=== PATIENT | male | born 1960 | race Caucasian/White ===

== ENCOUNTER 2018-02-08 14:22 | Inpatient (IN) ==
[2018-02-08] MEDS ORDERED: 0.9 % Sodium Chloride 1,000 ML IVC ONE (16:17)
[2018-02-08] MEDS ORDERED: Ketorolac 15 MG/ML VIAL IVP ONE (16:19)
[2018-02-08 16:38] LABS: Basophils % 0.7 %; Eosinophils # 0.1 K/mcL (0.0-0.6); Eosinophils % 1.1 %; Hematocrit 35.7 % (37.5-50.1); Hemoglobin 11.7 g/dL (12.9-16.9); Immature Granulocytes % 2.3 % (0-4); Lymphocytes # 0.5 K/mcL (0.6-4.6); Mean Corpuscular HGB Conc 32.8 g/dL (31.6-35.5); Mean Corpuscular Hemoglobin 30.1 pg (28.0-33.3); Mean Corpuscular Volume 91.8 fL (83.0-100.0); Mean Platelet Volume 8.6 fL (9.4-12.4); Monocytes # 0.7 K/mcL (0.0-1.3); Monocytes % 12.7 %; Neutrophils # 4.2 K/mcL (1.6-8.9); Platelet Count 322 K/mcL (140-400); Red Blood Count 3.89 M/mcL (4.19-5.50); Red Cell Distribution Width 12.5 % (11.5-14.5); Segmented Neutrophils % 74.2 %
[2018-02-08 16:57] LABS: Calcium 8.7 mg/dL (8.6-10.3); Potassium 4.5 mEq/L (3.5-5.1)
[2018-02-08] MEDS ORDERED: *HR* FentaNYL (PF) 100 MCG/2 ML VIAL IVP ONE (17:26)
[2018-02-08] MEDS ORDERED: Isovue-370 500 ML INFUS..BTL PO ONE (18:16)
[2018-02-08] MEDS ORDERED: Piperacillin/Tazobactam 3.375 GM in Water for inj. (sterile) 20 ML 20 ML IVP ONE (18:55)
[2018-02-08] MEDS ORDERED: MetroNIDAZOLE 500 MG/100 ML 500 MG/100 ML BAG IVPB ONE (19:13)
[2018-02-08 19:35] LABS: Thyroid Stimulating Hormone 2.025 mcIU/mL (0.340-5.600)
--- NOTE | 2018-02-08 19:36 | Emergency Department Note ---
Disposition Clinical Impression: Abdominal pain, Abdominal abscess, Renal stone Disposition: Admitted As Inpatient Condition: Fair Referrals: NONE,PCP [Primary Care Provider] - Forms: ED Satisfaction Letter, Work/School Release Abdominal Pain HPI - General Chief Complaint: ED Abdominal Pain Stated Complaint: ABd pain Time Seen by Provider: 02/08/18 15:55 Source: patient Mode of arrival: private vehicle Limitations: no limitations Nursing Notes Reviewed: Yes Vital Signs Reviewed: Yes - History of Present Illness HPI Narrative: The patient is a 57-year-old male presenting for one week history of progressively worsening abdominal pain. Patient states that he has a history of Crohn's disease with 2 colectomies performed when he was in his 20s. Patient also admits to a history of iron deficiency anemia with iron supplementation. Patient states that 1 week ago he noticed pain in the left lower quadrant which is progressively radiated diffusely throughout his abdomen. Patient states that the pain was initially sharp and stabbing in nature but is now is dull, 5 out of 10 on the pain scale and nonradiating. The patient states that he was seen at [facility] were imaging showed a "70% chance of bowel obstruction". Patient states that his last bowel movement was yesterday evening which was diarrhea-the patient states that with current disease diarrhea is his baseline. Patient denied blood in his diarrhea. The patient admits to chills but denies fever, headache, abnormal weight gain/loss, night sweats, vision change, difficulty eating or swallowing, chest pain, shortness of breath, back pain, hematuria/hematochezia, or numbness and tingling in his extremities. patient states that he had an anterior abdominal hernia repaired and that his surgeon noted that mesh may have displaced. The patient has an anterior mass noted on the right side of his mid abdominal region consistent with abdominal hernia. Pt Subjective Complaint: abdominal pain Onset (ago): week(s) Consistency: constant Location: diffuse, LLQ Pain Severity: moderate Pain Scale: 5 Quality: dull Radiation: none Migration to: no migration Improves with: nothing Worsens with: nothing Associated symptoms: Reports: diarrhea, chills - Related Data Home Medications Medication Instructions Recorded Confirmed Baclofen [Lioresal] 10 mg PO BID PRN 02/08/18 02/08/18 Buspirone HCl [Buspar] 10 mg PO BID 02/08/18 02/08/18 DULoxetine [Cymbalta] 30 mg PO BID 02/08/18 02/08/18 Diphenoxylate/Atropine [Lomotil 1 tab PO QID PRN 02/08/18 02/08/18 2.5 mg/0.025 mg] Gabapentin [Neurontin] 300 mg PO BID 02/08/18 02/08/18 Levothyroxine Sodium [Levoxyl] 75 mcg PO DAILY 02/08/18 02/08/18 Allergies Allergy/AdvReac Type Severity Reaction Status Date / Time No Known Allergies Allergy Verified 02/08/18 14:38 All systems ED: reviewed and negative except as stated. Review of Systems: As Per HPI Constitutional: Reports: chills, weakness. Denies: fever, weight change, night sweats Eyes: Denies: vision change ENT ED: Denies: dysphagia Cardiovascular: Denies: chest pain Respiratory: Denies: dyspnea Gastrointestinal: Reports: abdominal pain, diarrhea. Denies: nausea, vomiting Neurological: Reports: weakness. Denies: headache, numbness, paresthesias Endocrine: Reports: fatigue Abdominal Pain PMH - Past Medical History Medical history: Reports: other Psychiatric history: Reports: anxiety, depression - Social History Smoking status: Never smoker Alcohol use: Reports: none Drug use: Reports: none Physical Exam - General Limitations: no limitations General appearance: alert, in no apparent distress - Head Head exam: atraumatic, normocephalic, normal inspection - Eye Eye exam: Present: normal appearance, PERRL, EOMI. Absent: scleral icterus, conjunctival injection - Neck Neck exam: Present: trachea midline - Chest Chest inspection: Present: normal inspection, symmetric chest wall rise - Respiratory Respiratory exam: Present: normal lung sounds bilaterally. Absent: respiratory distress, accessory muscle use, prolonged expiratory phase - Cardiovascular Cardiovascular exam: Present: regular rate, normal rhythm, normal heart sounds, +S1, +S2. Absent: JVD, +S3, +S4 - Abdominal Exam Abdominal exam: Present: soft, tenderness, distention, normal bowel sounds. Absent: guarding, rebound, rigidity, organomegaly Abdominal tenderness: Present: LLQ (Diffuse tenderness noted to palpation, worse in the left lower quadrant), diffuse - Neurological Exam Neurological exam: Present: alert, oriented X3 - Psychiatric Psychiatric exam: Present: normal affect, normal mood - Skin Skin exam: Present: warm, dry, intact, normal color. Absent: cyanosis, diaphoresis Course Course Narrative: Patient history, review of systems, physical exam concerning for abdominal etiology-possibly bowel obstruction or exacerbation of Crohn's disease. CT of abdomen and pelvis without contrast, CBC, BMP, LDH, and will be assessed for anatomic, metabolic, and infectious etiology. 1 L fluid bolus and 10 mg ketorol ac administered for hydration and pain management. Vital Signs Temperature 98.3 F 02/08/18 14:36 Pulse Rate 85 02/08/18 14:36 Respiratory Rate 16 02/08/18 14:36 Blood Pressure 103/62 02/08/18 14:36 O2 Sat by Pulse Oximetry 98 02/08/18 14:36 Temperature 98.3 F 02/08/18 16:38 Pulse Rate 88 02/08/18 19:30 Respiratory Rate 20 02/08/18 19:30 Blood Pressure 118/69 02/08/18 20:25 O2 Sat by Pulse Oximetry 100 02/08/18 19:30 Oxygen Delivery Oxygen Delivery Room Air Abdominal Pain - MDM Narrative Medical decision making narrative: Based on radiological imaging, patient has a large abdominal abscess as well as obstructing renal lithiasis. Surgery has been consulted and is following, consult placed to urology. Patient to be admitted to hospital pending potential surgical/IR intervention. - Lab Data Result diagrams: 02/08/18 16:25 02/08/18 16:25 Lab Results 02/08/18 02/08/18 02/08/18 Range/Units 16:25 16:25 16:25 WBC 5.7 (4.3-11.1) K/mcL RBC 3.89 L (4.19-5.50) M/mcL Hgb 11.7 L (12.9-16.9) g/dL Hct 35.7 L (37.5-50.1) % MCV 91.8 (83.0-100.0) fL MCH 30.1 (28.0-33.3) pg MCHC 32.8 (31.6-35.5) g/dL RDW 12.5 (11.5-14.5) % Plt Count 322 (140-400) K/mcL MPV 8.6 L (9.4-12.4) fL Immature Gran % 2.3 (0-4) % Seg Neutrophils % 74.2 % Lymphocytes % 9.0 % Monocytes % 12.7 % Eosinophils % 1.1 % Basophils % 0.7 % Neutrophils # 4.2 (1.6-8.9) K/mcL Lymphocytes # 0.5 L (0.6-4.6) K/mcL Monocytes # 0.7 (0.0-1.3) K/mcL Eosinophils # 0.1 (0.0-0.6) K/mcL Basophils # 0.0 (0.0-0.2) K/mcL PT 16.8 H (9.4-12.1) Seconds INR 1.5 Sodium 134 L (136-145) mEq/L Potassium 4.5 (3.5-5.1) mEq/L Chloride 99 (98-107) mEq/L Carbon Dioxide 27 (23-29) mEq/L BUN 15 (6-20) mg/dL Creatinine 1.50 H (0.70-1.30) mg/dL Est GFR ( Amer) 58 L (> 60) Est GFR (Non-Af Amer) 48 L (> 60) BUN/Creatinine Ratio 10 (6-26) Glucose 108 H (70-105) mg/dL Calculated Osmolality 279 L (280-300) Lactic Acid (0.5-2.2) mmol/L Calcium 8.7 (8.6-10.3) mg/dL Lactate Dehydrogenase 111 L (140-271) Units/L TSH 2.025 (0.340-5.600) mcIU/mL 02/08/18 Range/Units 19:57 WBC (4.3-11.1) K/mcL RBC (4.19-5.50) M/mcL Hgb (12.9-16.9) g/dL Hct (37.5-50.1) % MCV (83.0-100.0) fL MCH (28.0-33.3) pg MCHC (31.6-35.5) g/dL RDW (11.5-14.5) % Plt Count (140-400) K/mcL MPV (9.4-12.4) fL Immature Gran % (0-4) % Seg Neutrophils % % Lymphocytes % % Monocytes % % Eosinophils % % Basophils % % Neutrophils # (1.6-8.9) K/mcL Lymphocytes # (0.6-4.6) K/mcL Monocytes # (0.0-1.3) K/mcL Eosinophils # (0.0-0.6) K/mcL Basophils # (0.0-0.2) K/mcL PT (9.4-12.1) Seconds INR Sodium (136-145) mEq/L Potassium (3.5-5.1) mEq/L Chloride (98-107) mEq/L Carbon Dioxide (23-29) mEq/L BUN (6-20) mg/dL Creatinine (0.70-1.30) mg/dL Est GFR ( Amer) (> 60) Est GFR (Non-Af Amer) (> 60) BUN/Creatinine Ratio (6-26) Glucose (70-105) mg/dL Calculated Osmolality (280-300) Lactic Acid 0.7 (0.5-2.2) mmol/L Calcium (8.6-10.3) mg/dL Lactate Dehydrogenase (140-271) Units/L TSH (0.340-5.600) mcIU/mL Attestation Statement - Attestation Attestation: I, Ismael Zaragoza DO, examined this patient [id number] and my medical decision-making was reviewed with Dr. Kody Elmore, Resident Physician. I agree with the documented findings, disposition and treatment plan as described except to the extent set forth below. Please see my progress notes for details.
[2018-02-08 19:37] LABS: INR 1.5; Prothrombin Time 16.8 Seconds (9.4-12.1)
--- NOTE | 2018-02-08 19:41 | Emergency Department Note ---
Disposition Clinical Impression: Abdominal pain, Abdominal abscess, Renal stone Disposition: Admitted As Inpatient Condition: Fair Referrals: NONE,PCP [Primary Care Provider] - Forms: ED Satisfaction Letter, Work/School Release Time of Disposition: 19:41 General Adult HPI - General Chief complaint: ED Abdominal Pain Stated complaint: ABd pain Time Seen by Provider: 02/08/18 15:55 Source: patient Mode of arrival: private vehicle Limitations: no limitations - History of Present Illness Pain Scale: 5 - Related Data Home Medications Medication Instructions Recorded Confirmed Baclofen [Lioresal] 10 mg PO BID PRN 02/08/18 02/08/18 Buspirone HCl [Buspar] 10 mg PO BID 02/08/18 02/08/18 DULoxetine [Cymbalta] 30 mg PO BID 02/08/18 02/08/18 Diphenoxylate/Atropine [Lomotil 1 tab PO QID PRN 02/08/18 02/08/18 2.5 mg/0.025 mg] Gabapentin [Neurontin] 300 mg PO BID 02/08/18 02/08/18 Levothyroxine Sodium [Levoxyl] 75 mcg PO DAILY 02/08/18 02/08/18 Allergies Allergy/AdvReac Type Severity Reaction Status Date / Time No Known Allergies Allergy Verified 02/08/18 14:38 Constitutional: Reports: chills, weakness. Denies: fever, weight change, night sweats Eyes: Denies: vision change ENT ED: Denies: dysphagia Cardiovascular: Denies: chest pain Respiratory: Denies: dyspnea Gastrointestinal: Reports: abdominal pain, diarrhea. Denies: nausea, vomiting Neurological: Reports: weakness. Denies: headache, numbness, paresthesias Endocrine: Reports: fatigue Past Medical History - Past Medical History Medical history: Reports: other Surgical history: Reports: herniorrhaphy Psychiatric history: Reports: anxiety, depression - Social History Smoking Status: Never smoker Smokeless Tobacco Status: No Alcohol use: Reports: none Drug use: Reports: none Physical Exam - General Limitations: no limitations General appearance: alert, in no apparent distress Course Vital Signs Temperature 98.3 F 02/08/18 14:36 Pulse Rate 85 02/08/18 14:36 Respiratory Rate 16 02/08/18 14:36 Blood Pressure 103/62 02/08/18 14:36 O2 Sat by Pulse Oximetry 98 02/08/18 14:36 Temperature 98.3 F 02/08/18 16:38 Pulse Rate 88 02/08/18 19:30 Respiratory Rate 20 02/08/18 19:30 Blood Pressure 126/66 02/08/18 19:30 O2 Sat by Pulse Oximetry 100 02/08/18 19:30 Oxygen Delivery Oxygen Delivery Room Air Medical Decision Making - Lab Data Result diagrams: 02/08/18 16:25 02/08/18 16:25 Lab Results 02/08/18 02/08/18 Range/Units 16:25 16:25 WBC 5.7 (4.3-11.1) K/mcL RBC 3.89 L (4.19-5.50) M/mcL Hgb 11.7 L (12.9-16.9) g/dL Hct 35.7 L (37.5-50.1) % MCV 91.8 (83.0-100.0) fL MCH 30.1 (28.0-33.3) pg MCHC 32.8 (31.6-35.5) g/dL RDW 12.5 (11.5-14.5) % Plt Count 322 (140-400) K/mcL MPV 8.6 L (9.4-12.4) fL Immature Gran % 2.3 (0-4) % Seg Neutrophils % 74.2 % Lymphocytes % 9.0 % Monocytes % 12.7 % Eosinophils % 1.1 % Basophils % 0.7 % Neutrophils # 4.2 (1.6-8.9) K/mcL Lymphocytes # 0.5 L (0.6-4.6) K/mcL Monocytes # 0.7 (0.0-1.3) K/mcL Eosinophils # 0.1 (0.0-0.6) K/mcL Basophils # 0.0 (0.0-0.2) K/mcL Sodium 134 L (136-145) mEq/L Potassium 4.5 (3.5-5.1) mEq/L Chloride 99 (98-107) mEq/L Carbon Dioxide 27 (23-29) mEq/L BUN 15 (6-20) mg/dL Creatinine 1.50 H (0.70-1.30) mg/dL Est GFR ( Amer) 58 L (> 60) Est GFR (Non-Af Amer) 48 L (> 60) BUN/Creatinine Ratio 10 (6-26) Glucose 108 H (70-105) mg/dL Calculated Osmolality 279 L (280-300) Calcium 8.7 (8.6-10.3) mg/dL Lactate Dehydrogenase 111 L (140-271) Units/L TSH 2.025 (0.340-5.600) mcIU/mL Attestation Statement - Attestation Attestation: I, Ismael Zaragoza DO, examined this patient [id number] and my medical decision-making was reviewed with Dr. Kody Elmore, Resident Physician. I agree with the documented findings, disposition and treatment plan as described except to the extent set forth below. Please see my progress notes for details. 57-year-old male presents to the emergency room for evaluation of abdominal pain. Patient was seen in outside facility with a told them I "there is a 70% chance she may have a bowel obstruction". Patient did not feel comfortable with this and decided to come to our facility for continuation of her evaluation and care. Currently, vision is denying chest pain, shortness of breath, headache, vision changes. He has had intermittent nausea with no specific vomiting. Denies any falls trauma or injury otherwise. Vital signs are stable on presentation. Patient is been eating and drinking at home without any significant distress. Physical exam: Patient is resting comfortably in the bed. Head is atraumatic. Positive on reactive. Oral mucosa is patent and moist. Trachea is midline. Lungs are clear and heart is regular. Abdomen is soft but he does have tenderness diffusely across the abdominal wall. There is some involuntary guarding noted. Bowel sounds are diminished but are appreciable at this point. He denies any blood in his stool. No history of anal fissure trauma or injury. Detailed workup here today will be completed CBC, chemistry, lipase, liver function. Urinalysis will be collected as well. CT imaging of the abdomen and EKG will be ordered. Disposition will be determined once the full workup treatment course and evaluation have been established. Fluids nausea medication pain medication will be given. See detailed documentation of the physical exam, medical intervention, medical decision-making and disposition in the resident physician's note. No critical care applied to the patient's treatment course at this time 1900 Patient found to have intra-abdominal abscess as well as a 5 mm midureteral obstructing stone with severe hydronephrosis. Stone most likely obstructed up against the abscess site and has been chronic now for a period of time. Both of these etiology are on the left side of the abdomen. Surgical intervention was discussed and reviewed with the patient. He has had surgery at this facility in the past. Dr. cyr was in the emergency room of a context of her and she will evaluate the patient the bedside and did recommend antibiotics and admission to the hospitals. Urology will be consult that is well further medical intervention. Disposition will be admission wants to hospitals calls us back. We have been waiting a period of time at this point for hospitalist call back for medical admissions. Disposition to be completed. 1930 Patient discussed with the hospitalist for admission. Urology consultation was placed. Nonemergent intervention is required. Surgical evaluation will be completed on the inpatient setting. No other recommendations or concerns from the hospitalist at this time. Patient is otherwise clinically stable with appropriate medical intervention antibiotics provided. Patient will be observed here in the emergency room until the admission process is completed
--- NOTE | 2018-02-08 20:03 | General Surgery Consult Note ---
Date of Encounter: 02/08/18 Time of Encounter: 19:47 Assessment and Plan (1) Crohn's disease with abscess Current Visit: Yes Status: Chronic CT scan personally reviewed cipro/flagyl antibiotics recommend DENA cooper for drain placement for intra-abdominal abscess npo ivfhydration prn pain control serial abdominal exams no surgical intervention warranted at this time Qualifiers: Gastrointestinal tract location: small intestine Qualified Code(s): K50.014 - Crohn's disease of small intestine with abscess (2) Hydronephrosis Current Visit: Yes Status: Acute recommend consult urology Qualifiers: Hydronephrosis type: with renal calculous obstruction Qualified Code(s): N13.2 - Hydronephrosis with renal and ureteral calculous obstruction (3) Abdominal pain Current Visit: Yes Status: Acute see above (Crohns abscess) Qualifiers: Abdominal location: generalized Qualified Code(s): R10.84 - Generalized abdominal pain (4) Renal stone Current Visit: Yes Status: Acute (5) Hypothyroid Current Visit: Yes Status: Chronic treat with iv medication/synthroid Qualifiers: Hypothyroidism type: unspecified Qualified Code(s): E03.9 - Hypothyroidism, unspecified History of Present Illness Consult date: 02/08/18 Reason for consult: other (Crohns abscess) Requesting physician: Ismael Zaragoza History of present illness: Patient is a 57 year old male with prolonged medical history of Crohn's Disease. He is followed by Dr Salamanca for his crohns and takes Entyvio and lomotil. Patient was previously treated with remicade but he had a reaction to it. Hes been having intermittent abdominal pain since last weekend (about 6 days ago). For the last day and a half he has been having bilateral lower abdominal pain that is dull and always present with intermittent sharp pains that last a few seconds. Denies nasuea and vomiting. No abdominal distention. Denies fevers, chills or night sweat. No melena or hematochezia. He is still passing flatus and last bm this am - his normal soft. CT scan here in ED shows "Multi segmental a reas of small bowel wall thickening compatible with "skip lesions" given patient's history of Crohn's disease. Intra-abdominal abscess containing foci of gas adjacent to a small bowel stricture. No contrast extravasation to suggest leak." wbc wnl and no bands present. Cr 1.5 Past Med Surg Social Fam HX - Past Medical History Source: patient Medical history: other Additional medical history: Crohns. RLS. hx renal stones Psychiatric history: anxiety, depression - Past Surgical History Surgical History: colectomy (??), herniorrhaphy (x3 (mesh placed last surgery only)), other (hx renal stone extraction/stents) Additional surgical history: bowel surgery - Social History Smoking Status: Never smoker Smokeless Tobacco Status: No Alcohol use: none Drug use: none - Family History Grandmother History Unknown: Yes Medications and Allergies Baclofen [Lioresal] 10 mg PO BID PRN 02/08/18 [History] Buspirone HCl [Buspar] 10 mg PO BID 02/08/18 [History] DULoxetine [Cymbalta] 30 mg PO BID 02/08/18 [History] Diphenoxylate/Atropine [Lomotil 2.5 mg/0.025 mg] 1 tab PO QID PRN 02/08/18 [History] Gabapentin [Neurontin] 300 mg PO BID 02/08/18 [History] Levothyroxine Sodium [Levoxyl] 75 mcg PO DAILY 02/08/18 [History] Allergy/AdvReac Type Severity Reaction Status Date / Time No Known Allergies Allergy Verified 02/08/18 14:38 Review of Systems All systems PM: reviewed and no additional remarkable complaints except as stated All systems PM: The remainder of the systems were reviewed and are negative General Surgery Exam Initial Vital Signs Temp Pulse Resp BP Pulse Ox 98.3 F 85 16 103/62 98 02/08/18 14:36 02/08/18 14:36 02/08/18 14:36 02/08/18 14:36 02/08/18 14:36 - General physical appearance well developed, no distress, no pain, chronically ill - Eyes PERRL, normal ocular movement - ENT normal mucosa, normocephalic - Neck trachea midline - Respiratory normal expansion, clear to auscultation - Cardiovascular Cardiovascular exam: Present: RRR, no murmurs/rubs/gallops - Abdomen Abdomen general surgery: Present: bowel sounds present, soft, tender (minmal at midabdomen). Absent: distended, guarding, rebound - Integumentary Integumentary general surgery: Present: warm and dry, no abnormal pigmentation - Neurologic Present: CN 2-12 grossly intact - Musculoskeletal Present: normal posture - Psychiatric Psychiatric general surgery: Present: A&Ox3, speech is normal Exam Initial Vital Signs Temp Pulse Resp BP Pulse Ox 98.3 F 85 16 103/62 98 02/08/18 14:36 02/08/18 14:36 02/08/18 14:36 02/08/18 14:36 02/08/18 14:36 Results - Labs 02/08/18 16:25 02/08/18 16:25 Abnormal lab results RBC 3.89 M/mcL (4.19-5.50) L 02/08/18 16:25 Hgb 11.7 g/dL (12.9-16.9) L 02/08/18 16:25 Hct 35.7 % (37.5-50.1) L 02/08/18 16:25 MPV 8.6 fL (9.4-12.4) L 02/08/18 16:25 Lymphocytes # 0.5 K/mcL (0.6-4.6) L 02/08/18 16:25 PT 16.8 Seconds (9.4-12.1) H 02/08/18 16:25 Sodium 134 mEq/L (136-145) L 02/08/18 16:25 Creatinine 1.50 mg/dL (0.70-1.30) H 02/08/18 16:25 Est GFR ( Amer) 58 (> 60) L 02/08/18 16:25 Est GFR (Non-Af Amer) 48 (> 60) L 02/08/18 16:25 Glucose 108 mg/dL (70-105) H 02/08/18 16:25 Calculated Osmolality 279 (280-300) L 02/08/18 16:25 Lactate Dehydrogenase 111 Units/L (140-271) L 02/08/18 16:25 Diabetes panel 02/08/18 Range/Units 16:25 Sodium 134 L (136-145) mEq/L Potassium 4.5 (3.5-5.1) mEq/L Chloride 99 (98-107) mEq/L Carbon Dioxide 27 (23-29) mEq/L BUN 15 (6-20) mg/dL Creatinine 1.50 H (0.70-1.30) mg/dL Glucose 108 H (70-105) mg/dL Calcium 8.7 (8.6-10.3) mg/dL Thyroid panel 02/08/18 Range/Units 16:25 TSH 2.025 (0.340-5.600) mcIU/mL Calcium panel 02/08/18 Range/Units 16:25 Calcium 8.7 (8.6-10.3) mg/dL Pituitary panel 02/08/18 Range/Units 16:25 Sodium 134 L (136-145) mEq/L Potassium 4.5 (3.5-5.1) mEq/L Chloride 99 (98-107) mEq/L Carbon Dioxide 27 (23-29) mEq/L BUN 15 (6-20) mg/dL Creatinine 1.50 H (0.70-1.30) mg/dL Glucose 108 H (70-105) mg/dL Calcium 8.7 (8.6-10.3) mg/dL TSH 2.025 (0.340-5.600) mcIU/mL Adrenal panel 02/08/18 Range/Units 16:25 Sodium 134 L (136-145) mEq/L Potassium 4.5 (3.5-5.1) mEq/L Chloride 99 (98-107) mEq/L Carbon Dioxide 27 (23-29) mEq/L BUN 15 (6-20) mg/dL Creatinine 1.50 H (0.70-1.30) mg/dL Glucose 108 H (70-105) mg/dL Calcium 8.7 (8.6-10.3) mg/dL All other labs normal. - Imaging CT scan - abdomen: report reviewed, image reviewed CT scan - pelvis: report reviewed, image reviewed Consult Discharge Plan - Plan Referrals: NONE,PCP [Primary Care Provider] -
[2018-02-08] MEDS: 0.9 % Sodium Chloride 1,000 ML IVC SCH (20:15)
[2018-02-08 20:49] LABS: Bilirubin,Urine Negative (Negative); Blood,Urine Negative (Negative); Clarity,Urine Clear (Clear); Color,Urine Yellow (Yellow); Glucose,Urine (UA) Normal (Normal); Ketones,Urine Negative (Negative); Leukocyte Esterase,Urine Negative (Negative); Nitrite,Urine Negative (Negative); Protein,Urine Negative (Neg-Trace); Specific Gravity,Urine 1.026 (1.010-1.025); Urobilinogen,Urine Normal (Normal)
[2018-02-08] MEDS ORDERED: Diphenoxylate/Atropine 1 TAB TABLET PO PRN (21:47)
--- NOTE | 2018-02-08 22:37 | Internal Med History&Physical ---
Date of Encounter: 02/08/18 Time of Encounter: 22:36 Internal Medicine - H&P: HPI Chief complaint: abdominal pain Admitted From: Home Plans for Post Hospital Care: Home History of present illness: Mr. Elena is a 57 year old man with Crohn's disease on immunomodulator therapy and multiple gastrointestinal surgeries who presents with the complaint of abdominal pain that has been progressively increasing over the past 1 week. He localizes it to his left flank but has now extended to the umbilical and spurapbuc region. He reports having occasional diarrhea that is consistent with his IBD and not out of the ordinary for him. He occasioanlly has chills but denies fever. He denies any trauma to the abdomen and no recent surgical manipulations. No nausea or vomiting and he is still able to tolerate PO. He passes gas and has active bowel movements. CT scan done here on arrival was depictive of "Multi segmental areas of small bowel wall thickening compatible with "skip lesions" given patient's history of Crohn's disease. Intra-abdominal abscess containing foci of gas adjacent to a small bowel stricture. No contrast extravasation to suggest leak." Surgery was consulted and deemed not to require acute intervention at this time given his clinical stability, lack of peritoneal signs and no systemic signs of illness (no fever or leuocytosis). The recommendation is to continue Iv abx and consult IR for drainage. At this time he has no complaints, stating that he mainly feels pain when the abdomen is pressed on. Past Med Surg Social Fam HX - Past Medical History Medical history: other Additional medical history: Crohns. RLS. hx renal stones Psychiatric history: anxiety, depression - Past Surgical History Surgical History: colectomy (??), herniorrhaphy (x3 (mesh placed last surgery only)), other (hx renal stone extraction/stents) Additional surgical history: bowel surgery - Social History Smoking Status: Never smoker Smokeless Tobacco Status: No Alcohol use: none Drug use: none - Family History Grandmother History Unknown: Yes Internal Medicine - H&P: Meds Baclofen [Lioresal] 10 mg PO BID PRN 02/08/18 [History] Buspirone HCl [Buspar] 10 mg PO BID 02/08/18 [History] DULoxetine [Cymbalta] 30 mg PO BID 02/08/18 [History] Diphenoxylate/Atropine [Lomotil 2.5 mg/0.025 mg] 1 tab PO QID PRN 02/08/18 [History] Gabapentin [Neurontin] 300 mg PO BID 02/08/18 [History] Levothyroxine Sodium [Levoxyl] 75 mcg PO DAILY 02/08/18 [History] Allergy/AdvReac Type Severity Reaction Status Date / Time No Known Allergies Allergy Verified 02/08/18 14:38 All Systems PM: A 10-system review of systems was performed and is negative for pertinent findings except as documented above in the HPI. - Constitutional Vitals: Temp Pulse Resp BP Pulse Ox 98.3 F 62 12 123/73 96 02/08/18 16:38 02/08/18 22:23 02/08/18 22:23 02/08/18 22:23 02/08/18 22:23 Exam: Vitals: Reviewed General: Well-appearing, NAD Skin: Warm and supple. HEENT: Moist mucous membranes. No conjunctivae pallor. Neck: No lymphadenopathy. No JVD. No carotid bruits. No palpable thyroid. Chest: Normal thoracic expansion. Normal breath sounds. Clear to auscultation. Heart: Normal S1 & S2; rhythmic. No rubs or murmurs. Abdomen: Non-distended, soft and mildly tender to palpation in the left flank and mid-abdomen. No peritoneal reaction. Liver is normal in size. Spleen is not palpable. Extremities: No clubbing, cyanosis or edema. No calf tenderness. Normal distal pulses. Neurological: Awake, alert and oriented to person, place and time. No focal deficits. Psych: Affect appropriate. Internal Med - H&P Results - Labs CBC & Chem 7: 02/08/18 16:25 02/08/18 16:25 Labs: Short CBC 02/08/18 Range/Units 16:25 WBC 5.7 (4.3-11.1) K/mcL Hgb 11.7 L (12.9-16.9) g/dL Hct 35.7 L (37.5-50.1) % Plt Count 322 (140-400) K/mcL Neutrophils # 4.2 (1.6-8.9) K/mcL BMP 02/08/18 16:25 Sodium 134 L Potassium 4.5 Chloride 99 Carbon Dioxide 27 BUN 15 Creatinine 1.50 H Glucose 108 H Calcium 8.7 Urine 02/08/18 Range/Units 20:29 Urine Color Yellow (Yellow) Urine Clarity Clear (Clear) Urine pH 6.0 (5.0-8.0) pH Units Ur Specific [place] 1.026 H (1.010-1.025) Urine Protein Negative (Neg-Trace) mg/dL Urine Glucose (UA) Normal (Normal) mg/dL - Impressions ITS Impressions Abdomen/Pelvis CT 02/08/18 18:10 IMPRESSION: Multi segmental areas of small bowel wall thickening compatible with "skip lesions" given patient's history of Crohn's disease. Intra-abdominal abscess containing foci of gas adjacent to a small bowel stricture (see annotated images). No contrast extravasation to suggest leak. Adjacent 5 mm obstructing stones in the mid to distal left ureter results in severe left hydroureteronephrosis. Additional nonobstructing left intrarenal stones measuring up to 10 mm. Nonobstructive right nephrolithiasis. Cholelithiasis. D/ / Inderjit Zhang / Inderjit Zhang Interpreting Provider: Inderjit Zhang - Assessment and plan (1) Abdominal abscess Current Visit: Yes Status: Acute Assessment and plan: Likely a secondary complication to his Crohn's disease. Need to target gram negative enteric and anaerobic organisms. Lacks systemic signs of illness. Blood cultures ordered. Will continue ciprofloxacin/metronidazole for now. IR consult requested for drainage and samples should be sent for cell count, cytology and cultures. (2) GISSELLE (acute kidney injury) Current Visit: Yes Status: Acute Assessment and plan: Will place on IVF and recheck bmp. (3) Crohn's disease with abscess Current Visit: Yes Status: Chronic Assessment and plan: Receives immunomodulator every 6 weeks. Will continue to follow with GI. Qualifiers: Gastrointestinal tract location: small intestine Qualified Code(s): K50.014 - Crohn's disease of small intestine with abscess (4) Hypothyroid Current Visit: Yes Status: Chronic Assessment and plan: Will continue levothyroxine daily. Qualifiers: Hypothyroidism type: unspecified Qualified Code(s): E03.9 - Hypothyroidism, unspecified (5) Renal stone Current Visit: Yes Status: Acute Assessment and plan: Will place on IVF and tamsulosin. Will benefit from urology evaluation if symptomatic. (6) DVT prophylaxis Current Visit: Yes Status: Acute Assessment and plan: SubQ heparin indicated. - Time Spent With Patient Total time spent is greater than 50% in coordination of care (as documented) at patient's floor/unit and/or counseling patient: Greater than 35 minutes
[2018-02-09] MEDS ORDERED: Naloxone 0.4 MG/ML INJ IVP PRN (01:33)
[2018-02-09] MEDS ORDERED: *HR* HYDROcodone/Acet 5/325 mg TABLET PO PRN (01:33)
[2018-02-09] MEDS ORDERED: Ketorolac 15 MG/ML VIAL IVP PRN (01:33)
[2018-02-09] MEDS ORDERED: Acetaminophen 325 MG TABLET PO PRN (01:33)
[2018-02-09] MEDS: *HR* OxyCODONE Immed Rel 5 MG TABLET PO PRN ×3 (01:54→18:31)
[2018-02-09] MEDS: 0.9 % Sodium Chloride 1,000 ML IVC SCH (03:30)
[2018-02-09 06:09] LABS: Basophils # 0.1 K/mcL (0.0-0.2); Basophils % 1.5 %; Eosinophils # 0.1 K/mcL (0.0-0.6); Hematocrit 36.7 % (37.5-50.1); Hemoglobin 11.9 g/dL (12.9-16.9); Immature Granulocytes % 4.2 % (0-4); Lymphocytes # 0.7 K/mcL (0.6-4.6); Lymphocytes % 16.4 %; Mean Corpuscular HGB Conc 32.4 g/dL (31.6-35.5); Mean Corpuscular Hemoglobin 30.1 pg (28.0-33.3); Mean Corpuscular Volume 92.7 fL (83.0-100.0); Mean Platelet Volume 8.7 fL (9.4-12.4); Monocytes # 0.6 K/mcL (0.0-1.3); Monocytes % 15.6 %; Neutrophils # 2.4 K/mcL (1.6-8.9); Platelet Count 292 K/mcL (140-400); Red Blood Count 3.96 M/mcL (4.19-5.50); Red Cell Distribution Width 12.2 % (11.5-14.5); Segmented Neutrophils % 60.3 %
[2018-02-09 06:16] LABS: INR 1.5; Prothrombin Time 17.1 Seconds (9.4-12.1)
[2018-02-09 06:19] LABS: Activated Partial Thrombo Time 31.4 Seconds (26.0-36.0)
[2018-02-09] MEDS: D5% in 0.9% NACL 1,000 ML IVC SCH ×2 (06:24→18:33)
[2018-02-09 06:28] LABS: BUN/Creatinine Ratio 10 (6-26); Blood Urea Nitrogen 13 mg/dL (6-20); Calcium 8.4 mg/dL (8.6-10.3); Carbon Dioxide 26 mEq/L (23-29); Chloride 100 mEq/L (98-107); Glucose 69 mg/dL (70-105); Osmolality,Calculated 274 (280-300); Potassium 4.7 mEq/L (3.5-5.1); Sodium 133 mEq/L (136-145); eGFR For Non-African Americans 57 (> 60)
[2018-02-09] MEDS: MetroNIDAZOLE 500 MG/100 ML 500 MG/100 ML BAG IVPB SCH ×3 (08:10→15:22)
[2018-02-09] MEDS: Gabapentin 300 MG CAPSULE PO SCH ×2 (08:11→22:12)
--- NOTE | 2018-02-09 10:05 | Urology - Consult Note ---
Date of Encounter: 02/09/18 (n) Time of Encounter: 10:01 - Assessment and Plan (1) Ureteral calculus, left Current Visit: Yes Status: Acute Assessment and plan: A few calculi in the mid left ureter the larger which is 6 mm. There is massive hydronephrosis with loss of left renal parenchyma proximal to the stones. The patient reports she officially told he had a nonfunctioning left kidney. His urine is without signs of infection. Discussed need for urinary diversion being prevention of further functional loss of the left kidney and potential relief from contribution of obstruction to his abdominal pain. Plan: Will add on for cystoscopy left retrograde left double-J stent placement as inpatient. Will arrange outpatient follow-up for determination of renal function and further management of stones and left kidney. Okay for discharge from urology standpoint post stent placement (2) Abdominal pain Current Visit: Yes Status: Acute Assessment and plan: Crohn's disease with abdominal abscess, but contribution from the left hydronephrosis cannot be ruled out. Plan: Crohn's management as per general surgery. Stent placement in the OR today Qualifiers: Abdominal location: generalized Qualified Code(s): R10.84 - Generalized abdominal pain (3) Left renal atrophy Current Visit: Yes Status: Acute Assessment and plan: It is unclear for how long his renal atrophy has been present. He reports he was presumptively told he had a nonfunctioning left kidney. Plan: Outpatient evaluation of renal function several weeks after obstruction has been relieved (4) Hydronephrosis Current Visit: Yes Status: Acute Assessment and plan: Secondary to midureteral calculi. Appears to be chronic as he has lost renal parenchyma. Plan: Stent for relief of obstruction Qualifiers: Hydronephrosis type: with renal calculous obstruction Qualified Code(s): N13.2 - Hydronephrosis with renal and ureteral calculous obstruction Urology CN:HPI Consult date: 02/09/18 Reason for consult Urology: Hydronephrosis Requesting physician: Elias Castillo History of present illness: Very pleasant 87-year-old gentleman with long-standing history of nephrolithiasis. Status post multiple interventions bilaterally. He reports he was told vas that he had a nonfunctioning left kidney. Patient is now admitted to the emergency department for abdominal pain. His workup reveals Case of Crohn disease with abdominal abscess. General surges been consulted and it appears the plan is for percutaneous drainage. Additional findings on CT shows massive left hydroureteronephrosis down to a 6 mm mid left ureteral calculus. There is significant thinning of the left renal parenchyma suggestive of poorly functioning left kidney. Suspect his hydrocodone be contributory to his abdominal pain. Patient reports no exacerbating or remitting factors. Has no fevers chills nausea vomiting. Past Med Surg Social Fam HX - Past Medical History Medical history: other Additional medical history: Crohns. RLS. hx renal stones Psychiatric history: anxiety, depression - Past Surgical History Surgical History: colectomy, herniorrhaphy, other Additional surgical history: bowel surgery - Social History Smoking Status: Never smoker Smokeless Tobacco Status: No Alcohol use: none Drug use: none - Family History Grandmother History Unknown: Yes Medications and Allergies Baclofen [Lioresal] 10 mg PO BID PRN 02/08/18 [History] Buspirone HCl [Buspar] 10 mg PO BID 02/08/18 [History] DULoxetine [Cymbalta] 30 mg PO BID 02/08/18 [History] Diphenoxylate/Atropine [Lomotil 2.5 mg/0.025 mg] 1 tab PO QID PRN 02/08/18 [History] Gabapentin [Neurontin] 300 mg PO BID 02/08/18 [History] Levothyroxine Sodium [Levoxyl] 75 mcg PO DAILY 02/08/18 [History] Allergy/AdvReac Type Severity Reaction Status Date / Time No Known Allergies Allergy Verified 02/08/18 14:38 Review of Systems - Constitutional no chills, no fever(s) - EENT Nose, mouth and throat: no dizziness, no headache(s) - Cardiovascular no chest pain, no dyspnea - Respiratory no cough - Gastrointestinal abdominal pain - Genitourinary no flank pain, no genital pain - Musculoskeletal no back pain - Integumentary no lesions, no rash - Neurological no confusion, no sensory deficit - Psychiatric no anxiety, no confusion - Hematologic/Lymphatic no easy bleeding, no easy bruising - Allergic/Immunologic no throat swelling, no wheezing Exam Initial Vital Signs Temp Pulse Resp BP Pulse Ox 98.3 F 85 16 103/62 98 02/08/18 14:36 02/08/18 14:36 02/08/18 14:36 02/08/18 14:36 02/08/18 14:36 - General physical appearance Present: well developed - Eyes Present: normal ocular movement - ENT Present: normal nares, normal mucosa - Neck Present: trachea midline - Respiratory Present: normal respiratory effort - Cardiovascular Cardiovascular exam IM: RRR - Abdomen Abdomen: Present: soft, masses - Integumentary Present: no growths, no abnormal pigmentation - Neurologic Present: normal coordination - Musculoskeletal Present: normal gait Urology Results - Labs 02/09/18 05:41 02/09/18 05:41 Abnormal lab results WBC 4.0 K/mcL (4.3-11.1) L 02/09/18 05:41 RBC 3.96 M/mcL (4.19-5.50) L 02/09/18 05:41 Hgb 11.9 g/dL (12.9-16.9) L 02/09/18 05:41 Hct 36.7 % (37.5-50.1) L 02/09/18 05:41 MPV 8.7 fL (9.4-12.4) L 02/09/18 05:41 Immature Gran % 4.2 % (0-4) H 02/09/18 05:41 PT 17.1 Seconds (9.4-12.1) H 02/09/18 05:41 Sodium 133 mEq/L (136-145) L 02/09/18 05:41 Est GFR (Non-Af Amer) 57 (> 60) L 02/09/18 05:41 Glucose 69 mg/dL (70-105) L 02/09/18 05:41 POC Glucose 69 mg/dL (70-99) L 02/09/18 05:31 Calculated Osmolality 274 (280-300) L 02/09/18 05:41 Calcium 8.4 mg/dL (8.6-10.3) L 02/09/18 05:41 Lactate Dehydrogenase 111 Units/L (140-271) L 02/08/18 16:25 Ur Specific [place] 1.026 (1.010-1.025) H 02/08/18 20:29 Diabetes panel 02/08/18 02/09/18 Range/Units 16:25 05:41 Sodium 134 L 133 L (136-145) mEq/L Potassium 4.5 4.7 (3.5-5.1) mEq/L Chloride 99 100 (98-107) mEq/L Carbon Dioxide 27 26 (23-29) mEq/L BUN 15 13 (6-20) mg/dL Creatinine 1.50 H 1.29 (0.70-1.30) mg/dL Glucose 108 H 69 L (70-105) mg/dL Calcium 8.7 8.4 L (8.6-10.3) mg/dL Thyroid panel 02/08/18 Range/Units 16:25 TSH 2.025 (0.340-5.600) mcIU/mL Calcium panel 02/08/18 02/09/18 Range/Units 16:25 05:41 Calcium 8.7 8.4 L (8.6-10.3) mg/dL Pituitary panel 02/08/18 02/09/18 Range/Units 16:25 05:41 Sodium 134 L 133 L (136-145) mEq/L Potassium 4.5 4.7 (3.5-5.1) mEq/L Chloride 99 100 (98-107) mEq/L Carbon Dioxide 27 26 (23-29) mEq/L BUN 15 13 (6-20) mg/dL Creatinine 1.50 H 1.29 (0.70-1.30) mg/dL Glucose 108 H 69 L (70-105) mg/dL Calcium 8.7 8.4 L (8.6-10.3) mg/dL TSH 2.025 (0.340-5.600) mcIU/mL Adrenal panel 02/08/18 02/09/18 Range/Units 16:25 05:41 Sodium 134 L 133 L (136-145) mEq/L Potassium 4.5 4.7 (3.5-5.1) mEq/L Chloride 99 100 (98-107) mEq/L Carbon Dioxide 27 26 (23-29) mEq/L BUN 15 13 (6-20) mg/dL Creatinine 1.50 H 1.29 (0.70-1.30) mg/dL Glucose 108 H 69 L (70-105) mg/dL Calcium 8.7 8.4 L (8.6-10.3) mg/dL All other labs normal. - Imaging CT scan - abdomen: image reviewed CT scan - pelvis: image reviewed (CT abdomen pelvis images reviewed and interpreted independently) Consult Discharge Plan - Plan Referrals: NONE,PCP [Primary Care Provider] -
--- NOTE | 2018-02-09 11:40 | General Surgery Progress Note ---
<Ryne Marino - Last Filed: 02/09/18 13:02> Date of Encounter: 02/09/18 Time of Encounter: 11:38 - Assessment and Plan (1) Crohn's disease with abscess Current Visit: Yes Status: Chronic Evidence on CT scan (02/08) Consulted IR for drain placement On flagyl and cipro D5 NS at 100 ml/hr Acetaminophen, norco, and oxycodone PRN for pain NPO No surgical intervention at this time Qualifiers: Gastrointestinal tract location: small intestine Qualified Code(s): K50.014 - Crohn's disease of small intestine with abscess (2) Renal stone Current Visit: Yes Status: Acute Patient has a few obstructing stones in left ureter with resulting hydronephrosis and loss of renal parenchyma Urology consulted Will place stent today Will follow up as outpatient to assess renal function (3) Hydronephrosis Current Visit: Yes Status: Acute 2/2 left renal stones Urology to place stent today Qualifiers: Hydronephrosis type: with renal calculous obstruction Qualified Code(s): N13.2 - Hydronephrosis with renal and ureteral calculous obstruction (4) GISSELLE (acute kidney injury) Current Visit: Yes Status: Acute Likely 2/2 renal stones and hydronephrosis Cr improved 1.5 > 1.29 today Subjective Patient reports: no new complaints, feels better, pain is less, no bowel movement, afebrile Narrative: No acute issues overnight. Patient's abdominal pain is very mild today. Patient denies nausea and vomiting. Objective Intake and Output 02/08/18 02/09/18 02/09/18 23:59 07:59 15:59 Intake Total 1300 / 1300 900 / 900 300 / 300 Output Total 1100 / 1100 Balance 1300 / 1300 -200 / -200 300 / 300 Intake: IV Fluids 1300 / 1300 900 / 900 300 / 300 0.9 % Sodium Chloride 1,000 ML 1000 / 1000 700 / 700 @ 100 mls/hr IVC .Q10H [facility] Rx#: [id number] D5% And 0.9% Nacl 1000 Ml 1,000 200 / 200 ML @ 100 mls/hr IVC .Q10H [facility] Rx#:[id number] Cipro Premix 400 MG/200 ML 400 200 / 200 200 / 200 mg In 200 ml @ 200 mls/hr IVPB Q12HR [facility] Rx#:[id number] Flagyl Premix 500 MG/100 ML 500 100 / 100 100 / 100 mg In 100 ml @ 100 mls/hr IVPB Q8HR [facility] Rx#:[id number] Oral 0 / 0 Output: Urine 1100 / 1100 Other: Weight 62.142 kg 62.4 kg Blood Glucose* 69 Patient Weight 02/09/18 23:59 Weight 62.4 kg - General physical appearance well developed - Respiratory normal expansion, normal respiratory effort - Cardiovascular Cardiovascular exam: Present: RRR - Abdomen Abdomen: Present: bowel sounds present, soft, non tender - Integumentary no rash - Psychiatric oriented to time, oriented to person, oriented to place - Labs 02/09/18 05:41 02/09/18 05:41 Diabetes panel 02/08/18 02/09/18 Range/Units 16:25 05:41 Sodium 134 L 133 L (136-145) mEq/L Potassium 4.5 4.7 (3.5-5.1) mEq/L Chloride 99 100 (98-107) mEq/L Carbon Dioxide 27 26 (23-29) mEq/L BUN 15 13 (6-20) mg/dL Creatinine 1.50 H 1.29 (0.70-1.30) mg/dL Glucose 108 H 69 L (70-105) mg/dL Calcium 8.7 8.4 L (8.6-10.3) mg/dL Thyroid panel 02/08/18 Range/Units 16:25 TSH 2.025 (0.340-5.600) mcIU/mL Calcium panel 02/08/18 02/09/18 Range/Units 16:25 05:41 Calcium 8.7 8.4 L (8.6-10.3) mg/dL Pituitary panel 02/08/18 02/09/18 Range/Units 16:25 05:41 Sodium 134 L 133 L (136-145) mEq/L Potassium 4.5 4.7 (3.5-5.1) mEq/L Chloride 99 100 (98-107) mEq/L Carbon Dioxide 27 26 (23-29) mEq/L BUN 15 13 (6-20) mg/dL Creatinine 1.50 H 1.29 (0.70-1.30) mg/dL Glucose 108 H 69 L (70-105) mg/dL Calcium 8.7 8.4 L (8.6-10.3) mg/dL TSH 2.025 (0.340-5.600) mcIU/mL Adrenal panel 02/08/18 02/09/18 Range/Units 16:25 05:41 Sodium 134 L 133 L (136-145) mEq/L Potassium 4.5 4.7 (3.5-5.1) mEq/L Chloride 99 100 (98-107) mEq/L Carbon Dioxide 27 26 (23-29) mEq/L BUN 15 13 (6-20) mg/dL Creatinine 1.50 H 1.29 (0.70-1.30) mg/dL Glucose 108 H 69 L (70-105) mg/dL Calcium 8.7 8.4 L (8.6-10.3) mg/dL - Imaging CT scan - abdomen: report reviewed CT scan - pelvis: report reviewed Consult Discharge Plan - Plan Referrals: NONE,PCP [Primary Care Provider] - <Ryann Manjarrez - Last Filed: 02/10/18 14:26> - Assessment and Plan (1) Crohn's disease with abscess Current Visit: Yes Status: Chronic agree with resident assesment/plan Qualifiers: Gastrointestinal tract location: small intestine Qualified Code(s): K50.014 - Crohn's disease of small intestine with abscess (2) Hydronephrosis Current Visit: Yes Status: Acute Qualifiers: Hydronephrosis type: with renal calculous obstruction Qualified Code(s): N13.2 - Hydronephrosis with renal and ureteral calculous obstruction (3) Abdominal pain Current Visit: Yes Status: Acute Qualifiers: Abdominal location: generalized Qualified Code(s): R10.84 - Generalized abdominal pain (4) Renal stone Current Visit: Yes Status: Acute (5) Hypothyroid Current Visit: Yes Status: Chronic Qualifiers: Hypothyroidism type: unspecified Qualified Code(s): E03.9 - Hypothyroidism, unspecified Subjective Patient reports: no new complaints, feels better, pain is less Objective Vital Signs - Last 8 Hours Temp Pulse Resp BP Pulse Ox 02/10/18 08:58 97.3 F L 69 16 109/69 98 Intake and Output 02/09/18 02/10/18 02/10/18 23:59 07:59 15:59 Intake Total 837 / 837 1500 / 1500 738 / 738 Output Total 75 / 75 350 / 350 Balance 762 / 762 1500 / 1500 388 / 388 Intake: IV Fluids 837 / 837 1500 / 1500 498 / 498 D5% And 0.9% Nacl 1000 Ml 1,000 437 / 437 1200 / 1200 398 / 398 ML @ 100 mls/hr IVC .Q10H [facility] Rx#:[id number] Ofirmev 1,000 mg/100 ml 1,000 100 / 100 mg In 100 ml @ 400 mls/hr IVPB ONCE ONE Rx#:[id number] Cipro Premix 400 MG/200 ML 400 200 / 200 200 / 200 mg In 200 ml @ 200 mls/hr IVPB Q12HR [facility] Rx#:[id number] Flagyl Premix 500 MG/100 ML 500 100 / 100 100 / 100 100 / 100 mg In 100 ml @ 100 mls/hr IVPB Q8HR [facility] Rx#:[id number] Oral 0 / 0 0 / 0 240 / 240 Output: Urine 75 / 75 350 / 350 Estimated Blood Loss 0 / 0 Other: Meal Lunch Percent of Meal Consumed 0% # Voids 1 Weight 62 kg Blood Glucose* 130 115 Patient Weight 02/10/18 23:59 Weight 62 kg - General physical appearance well developed, no distress - Eyes PERRL, normal ocular movement - ENT normal mucosa, normocephalic - Neck Neck exam: trachea midline - Respiratory normal expansion - Cardiovascular Cardiovascular exam: Present: RRR - Abdomen Abdomen: Present: bowel sounds present, soft, non tender - Integumentary no rash - Neurologic normal coordination - Musculoskeletal normal posture - Psychiatric oriented to time, oriented to person, oriented to place, memory intact - Labs 02/10/18 04:57 02/10/18 04:57 Diabetes panel 02/10/18 Range/Units 04:57 Sodium 131 L (136-145) mEq/L Potassium 4.8 (3.5-5.1) mEq/L Chloride 98 (98-107) mEq/L Carbon Dioxide 22 L (23-29) mEq/L BUN 11 (6-20) mg/dL Creatinine 1.24 (0.70-1.30) mg/dL Glucose 105 (70-105) mg/dL Calcium 8.5 L (8.6-10.3) mg/dL Calcium panel 10/28/18 Range/Units 04:57 Calcium 8.5 L (8.6-10.3) mg/dL Pituitary panel 02/10/18 Range/Units 04:57 Sodium 131 L (136-145) mEq/L Potassium 4.8 (3.5-5.1) mEq/L Chloride 98 (98-107) mEq/L Carbon Dioxide 22 L (23-29) mEq/L BUN 11 (6-20) mg/dL Creatinine 1.24 (0.70-1.30) mg/dL Glucose 105 (70-105) mg/dL Calcium 8.5 L (8.6-10.3) mg/dL Adrenal panel 02/10/18 Range/Units 04:57 Sodium 131 L (136-145) mEq/L Potassium 4.8 (3.5-5.1) mEq/L Chloride 98 (98-107) mEq/L Carbon Dioxide 22 L (23-29) mEq/L BUN 11 (6-20) mg/dL Creatinine 1.24 (0.70-1.30) mg/dL Glucose 105 (70-105) mg/dL Calcium 8.5 L (8.6-10.3) mg/dL - Attending Attestation I examined this patient and my medical decision-making was reviewed with the Resident Physician. I agree with the documented findings, disposition and treatment plan as described except to the extent set forth below.
--- NOTE | 2018-02-09 14:37 | Anesthesia Evaluation PreOp ---
<Valarie Madera - Last Filed: 02/09/18 14:35> - Past History Planned Operation: cystoscopy, left retrograde ureteroscopy Cardiac History: Denies any Significant Hx Pulmonary History: Denies Any Significant HX RACETRACK STEWARD History: Other (RLS) Other Medical History: Renal (left hydronephrosis, left renal atrophy), Other (Crohn's disease, abdominal abscess) Alcohol Use: none Drug use: none Medications and Allergies Baclofen [Lioresal] 10 mg PO BID PRN 02/08/18 [History] Buspirone HCl [Buspar] 10 mg PO BID 02/08/18 [History] DULoxetine [Cymbalta] 30 mg PO BID 02/08/18 [History] Diphenoxylate/Atropine [Lomotil 2.5 mg/0.025 mg] 1 tab PO QID PRN 02/08/18 [History] Gabapentin [Neurontin] 300 mg PO BID 02/08/18 [History] Levothyroxine Sodium [Levoxyl] 75 mcg PO DAILY 02/08/18 [History] Allergy/AdvReac Type Severity Reaction Status Date / Time NSAIDS (Non-Steroidal AdvReac Abdominal Verified 02/09/18 11:46 Anti-Inflamma Pain - Meds/Allergy Pre-op Review Medications Reviewed: Yes Allergies Reviewed: Yes Beta Blockers on Current Med List: No Anesthesia Results - Labs 02/09/18 05:41 02/09/18 05:41 Anesthesia Exam Last Vital Signs Temp 97.7 F 02/09/18 12:09 Pulse 67 02/09/18 12:09 Resp 16 02/09/18 12:09 BP 118/63 02/09/18 12:09 Pulse Ox 98 02/09/18 12:09 Weight: 62 kg <Omar Sparks - Last Filed: 02/09/18 21:12> Date of Encounter: 02/09/18 Time of Encounter: 21:10 - Past History Cardiac History: Denies any Significant Hx Pulmonary History: Denies Any Significant HX RACETRACK STEWARD History: Other Other Medical History: Renal Alcohol Use: none Drug use: none - Meds/Allergy Pre-op Review Medications Reviewed: Yes Anesthesia Results - Labs 02/09/18 05:41 02/09/18 05:41 Anesthesia Exam Height: 5'8 Weight: 62 kg 137 lbs NPO (# of Hours): MN Pain Scale: 0 - HEENT Pupil (Motor): Pupils equal, EOMI Mallampati: II Denture Type: Upper: Complete Oral Opening: Greater than 3 - RACETRACK STEWARD LOC: Oriented RACETRACK STEWARD Motor: Normal RUE, Normal LUE, Normal RLE, Normal LLE, Normal Face RACETRACK STEWARD Sensory: Normal: RUE, LUE, RLE, LLE, Face - Cardiac Rhythm: Regular Murmur: None JVD: No Carotid Bruit: No - Pulmonary Breath Sounds: bilateral Clear Respiratory Effort: Symmetrical Anesthesia Assess/Plan ASA Score: 2 Modified Johnny Scale for Level of Consciousness: Cooperative, oriented, and tranquil Anesthetic Plan: General Monitoring Plan: Standard Monitors Recovery Plan: PACU (Discussed GA, agrees to proceed)
--- NOTE | 2018-02-09 16:52 | Internal Med Progress Note ---
Hospitalist Progress Note - Encounter Date of Encounter: 02/09/18 Time of Encounter: 12:21 - Subjective Interval History: No acute events. States abdominal pain is fairly controlled with pain medication. - Exam Vitals: Temp Pulse Resp BP Pulse Ox 98.1 F 70 16 123/66 99 02/09/18 16:08 02/09/18 16:08 02/09/18 16:08 02/09/18 16:08 02/09/18 16:08 Exam: General: Well-appearing, NAD Skin: Warm and supple. HEENT: Moist mucous membranes. No conjunctivae pallor. Chest: Normal thoracic expansion. Normal breath sounds. Clear to auscultation. Heart: RRR, no mrg Abdomen: Soft, +TTP in epigastric region. No hepatomegaly/splenomegaly. Periumbilical hernia. Normal bowel sounds. Extremities: No clubbing, cyanosis or edema. No calf tenderness. Normal distal pulses. - Assessment and Plan (1) Abdominal abscess Current Visit: Yes Status: Acute Assessment and Plan: Likely a secondary complication to his Crohn's disease. Need to target gram negative enteric and anaerobic organisms. Lacks systemic signs of illness. Blood cultures ordered. Will continue c iprofloxacin/metronidazole for now. Surgery has evaluated patient and there is no indication for surgical intervention at this time. IR consult requested for drainage and samples should be sent for cell count, cytology and cultures. IR will be available on 02/11. (2) GISSELLE (acute kidney injury) Current Visit: Yes Status: Acute Assessment and Plan: Improved. Was 1.5 on admission and today is 1.29 (3) Renal stone Current Visit: Yes Status: Acute Assessment and Plan: Continue IV fluids and tamsulosin Plan for stent by Urology today. (4) Crohn's disease with abscess Current Visit: Yes Status: Chronic Assessment and Plan: Receives immunomodulator every 6 weeks. Will continue to follow with GI. (5) Hypothyroid Current Visit: Yes Status: Chronic Assessment and Plan: Will continue levothyroxine daily. (6) DVT prophylaxis Current Visit: Yes Status: Acute Assessment and Plan: SubQ heparin - Time Spent with Patient Total time spent is greater than 50% in coordination of care (as documented) at patient's floor/unit and/or counseling patient: Internal Medicine: Result - Labs CBC & Chem 7: 02/09/18 05:41 02/09/18 05:41 Labs: Short CBC 02/09/18 Range/Units 05:41 WBC 4.0 L (4.3-11.1) K/mcL Hgb 11.9 L (12.9-16.9) g/dL Hct 36.7 L (37.5-50.1) % Plt Count 292 (140-400) K/mcL Neutrophils # 2.4 (1.6-8.9) K/mcL BMP 02/08/18 02/09/18 16:25 05:41 Sodium 134 L 133 L Potassium 4.5 4.7 Chloride 99 100 Carbon Dioxide 27 26 BUN 15 13 Creatinine 1.50 H 1.29 Glucose 108 H 69 L Calcium 8.7 8.4 L Urine 02/08/18 Range/Units 20:29 Urine Color Yellow (Yellow) Urine Clarity Clear (Clear) Urine pH 6.0 (5.0-8.0) pH Units Ur Specific [place] 1.026 H (1.010-1.025) Urine Protein Negative (Neg-Trace) mg/dL Urine Glucose (UA) Normal (Normal) mg/dL - ABG Interpretation ABG results: PT/INR, D-dimer PT 17.1 Seconds (9.4-12.1) H 02/09/18 05:41 - Impressions Impressions Abdomen/Pelvis CT 02/08/18 18:10 IMPRESSION: Multi segmental areas of small bowel wall thickening compatible with "skip lesions" given patient's history of Crohn's disease. Intra-abdominal abscess containing foci of gas adjacent to a small bowel stricture (see annotated images). No contrast extravasation to suggest leak. Adjacent 5 mm obstructing stones in the mid to distal left ureter results in severe left hydroureteronephrosis. Additional nonobstructing left intrarenal stones measuring up to 10 mm. Nonobstructive right nephrolithiasis. Cholelithiasis. D/ / Inderjit Zhang / Inderjit Zhang Interpreting Provider: Inderjit Zhang Consult Discharge Plan - Plan Referrals: NONE,PCP [Primary Care Provider] - (4) Crohn's disease with abscess Qualifiers: Gastrointestinal tract location: small intestine Qualified Code(s): K50.014 - Crohn's disease of small intestine with abscess (5) Hypothyroid Qualifiers: Hypothyroidism type: unspecified Qualified Code(s): E03.9 - Hypothyroidism, unspecified
[2018-02-09] MEDS ORDERED: Isovue-300 30 ML VIAL ONE (21:11)
[2018-02-09] MEDS ORDERED: *HR* FentaNYL (PF) 100 MCG/2 ML VIAL ONE (21:19)
[2018-02-09] MEDS ORDERED: Ondansetron 4 MG/2 ML VIAL ONE (21:19)
[2018-02-09] MEDS ORDERED: *HR* Propofol 200 MG/20 ML VIAL IVP ONE (21:19)
[2018-02-09] MEDS ORDERED: Dexamethasone 4 MG/ML VIAL ONE (21:19)
[2018-02-09] MEDS ORDERED: Lidocaine -MPF 2% 2 ML VIAL ONE (21:19)
--- NOTE | 2018-02-09 21:53 | Operative Note ---
Date of procedure: 02/09/18 Pre-op diagnosis: left ureteral calculus Post-op diagnosis: other (left ureteral catheter was, left ureteral stricture) Procedure: Cystoscopy left retrograde ureteral pyelography with intraoperative interpretation of images by surgeon in real time to facilitate procedure, left ureteral dilation, left double-J stent placement under fluoroscopic guidance Implants: 6 x 26 left double-J stent Complications: none Anesthesia: GETA Surgeon: Vasu Trimble Was there an assistant director of nursing present: No Estimated blood loss (cc): 0 Specimen: none Condition: stable Disposition: PACU Procedure in Detail: The patient was brought in the operating theater identified in a name, date of then administered a general anesthetic. The patient was placed in dorsal lithotomy position prepped and draped in the normal sterile fashion. Cystoscope was inserted to retract meatus and advanced with the bladder under direct visualization. There were no abnormalities of the urethra bladder encountered. At this point an open-ended catheter was placed the tip of the left ureteral orifice and with gentle injection of contrast a left retrograde ureteropyelogram was performed. Intraoperative interpretation of the left retrograde ureteropyelogram revealed a normal distal ureter to the level of the pelvic inlet where a tight stricture was encountered without filling defect. Above the level of this stricture dilation of the proximal ureter and collecting system was noted. At this point a Glidewire was advanced through the strictured area into the left renal pelvis. A 6 x 26 double-J stent was attempted to be passed but met significant resistance at the level stricture. Since were able to pass the stent switched the wire to a superstiff. The stent still not go over superstiff wire. An 8-[place] dilator was obtained and the strictured area was dilated. Following dilation of the stricture the 6-[place] stent was easily advanced into the renal pelvis. Stent was felt in good position the Glidewire was removed. Adequate stent position was confirmed in real time by fluoroscopy. This ended the operative procedure. There were no complications.
[2018-02-09] MEDS ORDERED: Baclofen 10 MG TABLET PO PRN (21:59)
--- NOTE | 2018-02-09 22:16 | Anesthesia Evaluation Post Op ---
Date of Encounter: 02/09/18 Time of Encounter: 22:25 - Vital Signs Vital Signs: Vital Signs/O2 Sat/Glucose, Most Current Temp Pulse Resp BP Pulse Ox 02/09/18 21:58 99.1 F 73 10 116/76 98 02/09/18 20:16 98.1 F 76 16 117/67 98 - Lungs Lungs: Clear Ascult./Percussion - Airway Airway: Non-obstructed - Cardiovascular Regular Rate - Mental Status Mental Status: Alert & Oriented, Answers Appropriately - Pain Pain Scale: 0 - Nausea Vomiting Nausea Vomiting: Not Present - Hydration Hydration: Ice chips - Discharge PostOp Status: Transfer Patient to floor
[2018-02-09] MEDS ORDERED: Acetaminophen IV 1,000 MG/100 ML INFUS..BTL ONE (22:18)
[2018-02-09] MEDS: *HR* Morphine 2 MG/ML SYRINGE IVP PRN ×4 (22:19→22:39)
[2018-02-09] MEDS ORDERED: Acetaminophen IV 1,000 MG/100 ML INFUS..BTL IVPB ONE (22:20)
[2018-02-10] MEDS: MetroNIDAZOLE 500 MG/100 ML 500 MG/100 ML BAG IVPB SCH ×3 (00:49→15:38)
[2018-02-10] MEDS ORDERED: Acetaminophen 325 MG TABLET PO PRN (02:00)
[2018-02-10] MEDS ORDERED: Naloxone 0.4 MG/ML INJ IVP PRN (02:00)
[2018-02-10] MEDS ORDERED: Diphenoxylate/Atropine 1 TAB TABLET PO PRN (02:00)
[2018-02-10] MEDS ORDERED: *HR* OxyCODONE Immed Rel 5 MG TABLET PO PRN (02:00)
[2018-02-10] MEDS: D5% in 0.9% NACL 1,000 ML IVC SCH ×2 (04:47→15:37)
[2018-02-10 05:33] LABS: Basophils % 0.9 %; Hematocrit 34.8 % (37.5-50.1); Hemoglobin 11.4 g/dL (12.9-16.9); Immature Granulocytes % 3.6 % (0-4); Lymphocytes # 0.2 K/mcL (0.6-4.6); Lymphocytes % 3.6 %; Mean Corpuscular HGB Conc 32.8 g/dL (31.6-35.5); Mean Corpuscular Hemoglobin 30.5 pg (28.0-33.3); Mean Platelet Volume 8.7 fL (9.4-12.4); Monocytes # 0.1 K/mcL (0.0-1.3); Monocytes % 1.5 %; Platelet Count 258 K/mcL (140-400); Red Blood Count 3.74 M/mcL (4.19-5.50); Red Cell Distribution Width 12.4 % (11.5-14.5); Segmented Neutrophils % 90.4 %
[2018-02-10 05:42] LABS: Neutrophils # 4.3 K/mcL (1.6-8.9)
[2018-02-10 05:55] LABS: BUN/Creatinine Ratio 9 (6-26); Blood Urea Nitrogen 11 mg/dL (6-20); Calcium 8.5 mg/dL (8.6-10.3); Carbon Dioxide 22 mEq/L (23-29); Chloride 98 mEq/L (98-107); Glucose 105 mg/dL (70-105); Osmolality,Calculated 272 (280-300); Potassium 4.8 mEq/L (3.5-5.1); Sodium 131 mEq/L (136-145); eGFR For Non-African Americans 60 (> 60)
[2018-02-10 06:01] LABS: Platelet Estimate Normal (Normal)
[2018-02-10] MEDS: Gabapentin 300 MG CAPSULE PO SCH ×2 (07:30→20:04)
--- NOTE | 2018-02-10 09:28 | General Surgery Progress Note ---
<Ryann Manjarrez - Last Filed: 02/10/18 14:26> - Assessment and Plan (1) Crohn's disease with abscess Current Visit: Yes Status: Chronic agree with resident A/P Qualifiers: Gastrointestinal tract location: small intestine Qualified Code(s): K50.014 - Crohn's disease of small intestine with abscess (2) Hydronephrosis Current Visit: Yes Status: Acute Qualifiers: Hydronephrosis type: with renal calculous obstruction Qualified Code(s): N13.2 - Hydronephrosis with renal and ureteral calculous obstruction (3) Abdominal pain Current Visit: Yes Status: Acute Qualifiers: Abdominal location: generalized Qualified Code(s): R10.84 - Generalized abdominal pain (4) Renal stone Current Visit: Yes Status: Acute (5) Hypothyroid Current Visit: Yes Status: Chronic Qualifiers: Hypothyroidism type: unspecified Qualified Code(s): E03.9 - Hypothyroidism, unspecified Subjective Patient reports: no new complaints, pain is less, tolerating liquids well, flatus, no bowel movement, afebrile Objective Vital Signs - Last 8 Hours Temp Pulse Resp BP Pulse Ox 02/10/18 08:58 97.3 F L 69 16 109/69 98 Intake and Output 02/09/18 02/10/18 02/10/18 23:59 07:59 15:59 Intake Total 837 / 837 1500 / 1500 738 / 738 Output Total 75 / 75 350 / 350 Balance 762 / 762 1500 / 1500 388 / 388 Intake: IV Fluids 837 / 837 1500 / 1500 498 / 498 D5% And 0.9% Nacl 1000 Ml 1,000 437 / 437 1200 / 1200 398 / 398 ML @ 100 mls/hr IVC .Q10H [facility] Rx#:[id number] Ofirmev 1,000 mg/100 ml 1,000 100 / 100 mg In 100 ml @ 400 mls/hr IVPB ONCE ONE Rx#:[id number] Cipro Premix 400 MG/200 ML 400 200 / 200 200 / 200 mg In 200 ml @ 200 mls/hr IVPB Q12HR [facility] Rx#:[id number] Flagyl Premix 500 MG/100 ML 500 100 / 100 100 / 100 100 / 100 mg In 100 ml @ 100 mls/hr IVPB Q8HR [facility] Rx#:[id number] Oral 0 / 0 0 / 0 240 / 240 Output: Urine 75 / 75 350 / 350 Estimated Blood Loss 0 / 0 Other: Meal Lunch Percent of Meal Consumed 0% # Voids 1 Weight 62 kg Blood Glucose* 130 115 Patient Weight 02/10/18 23:59 Weight 62 kg - General physical appearance well nourished, no distress - Eyes PERRL, normal ocular movement - ENT normal mucosa, normocephalic - Neck Neck exam: trachea midline - Respiratory normal expansion, clear to auscultation - Cardiovascular Cardiovascular exam: Present: RRR - Abdomen Abdomen: Present: bowel sounds present, soft, non tender. Absent: distended, guarding, rebound - Integumentary no rash - Neurologic CN 2-12 grossly intact, normal sensation - Musculoskeletal normal posture - Psychiatric oriented to time, oriented to person, oriented to place, speech is normal, m burden intact - Labs 02/10/18 04:57 02/10/18 04:57 Diabetes panel 02/10/18 Range/Units 04:57 Sodium 131 L (136-145) mEq/L Potassium 4.8 (3.5-5.1) mEq/L Chloride 98 (98-107) mEq/L Carbon Dioxide 22 L (23-29) mEq/L BUN 11 (6-20) mg/dL Creatinine 1.24 (0.70-1.30) mg/dL Glucose 105 (70-105) mg/dL Calcium 8.5 L (8.6-10.3) mg/dL Calcium panel 02/10/18 Range/Units 04:57 Calcium 8.5 L (8.6-10.3) mg/dL Pituitary panel 02/10/18 Range/Units 04:57 Sodium 131 L (136-145) mEq/L Potassium 4.8 (3.5-5.1) mEq/L Chloride 98 (98-107) mEq/L Carbon Dioxide 22 L (23-29) mEq/L BUN 11 (6-20) mg/dL Creatinine 1.24 (0.70-1.30) mg/dL Glucose 105 (70-105) mg/dL Calcium 8.5 L (8.6-10.3) mg/dL Adrenal panel 02/10/18 Range/Units 04:57 Sodium 131 L (136-145) mEq/L Potassium 4.8 (3.5-5.1) mEq/L Chloride 98 (98-107) mEq/L Carbon Dioxide 22 L (23-29) mEq/L BUN 11 (6-20) mg/dL Creatinine 1.24 (0.70-1.30) mg/dL Glucose 105 (70-105) mg/dL Calcium 8.5 L (8.6-10.3) mg/dL Consult Discharge Plan - Plan Referrals: NONE,PCP [Primary Care Provider] - - Attending Attestation I examined this patient and my medical decision-making was reviewed with the Resident Physician. I agree with the documented findings, disposition and treatment plan as described except to the extent set forth below. <Ryne Marino - Last Filed: 02/10/18 16:15> Date of Encounter: 02/10/18 Time of Encounter: 07:30 - Assessment and Plan (1) Crohn's disease with abscess Current Visit: Yes Status: Chronic Evidence on CT scan (02/08) Consulted IR for drain placement On flagyl and cipro D5 NS at 100 ml/hr Acetaminophen, norco, and oxycodone PRN for pain CLD now, will be NPO at midnight No surgical intervention at this time Qualifiers: Gastrointestinal tract location: small intestine Qualified Code(s): K50.014 - Crohn's disease of small intestine with abscess (2) Renal stone Current Visit: Yes Status: Acute Patient has a few obstructing stones in left ureter with resulting hydronephrosis and loss of renal parenchyma Urology consulted Stent placed yesterday (02/09) Will follow up as outpatient to assess renal function (3) Hydronephrosis Current Visit: Yes Status: Acute 2/2 left renal stones Urology placed stent 02/09 Qualifiers: Hydronephrosis type: with renal calculous obstruction Qualified Code(s): N13.2 - Hydronephrosis with renal and ureteral calculous obstruction (4) GISSELLE (acute kidney injury) Current Visit: Yes Status: Acute Likely 2/2 renal stones and hydronephrosis Cr improved 1.29 > 1.24 today Subjective Patient reports: no new complaints, feels better, pain is less, flatus, no bowel movement Narrative: Patient resting well this AM. No acute events overnight. Patient asking for food. He denies nausea, vomiting, abdominal pain, chest pain, shortness of breath. Objective Vital Signs - Last 8 Hours Temp Pulse Resp BP Pulse Ox 02/10/18 08:58 97.3 F L 69 16 109/69 98 02/10/18 04:08 97.5 F L 84 16 102/67 95 02/10/18 02:05 98.2 F 70 16 102/59 94 Intake and Output 02/09/18 02/10/18 02/10/18 23:59 07:59 15:59 Intake Total 837 / 837 1500 / 1500 100 / 100 Output Total 75 / 75 350 / 350 Balance 762 / 762 1500 / 1500 -250 / -250 Intake: IV Fluids 837 / 837 1500 / 1500 100 / 100 D5% And 0.9% Nacl 1000 Ml 1,000 437 / 437 1200 / 1200 ML @ 100 mls/hr IVC .Q10H [facility] Rx#:[id number] Ofirmev 1,000 mg/100 ml 1,000 100 / 100 mg In 100 ml @ 400 mls/hr IVPB ONCE ONE Rx#:[id number] Cipro Premix 400 MG/200 ML 400 200 / 200 200 / 200 mg In 200 ml @ 200 mls/hr IVPB Q12HR [facility] Rx#:[id number] Flagyl Premix 500 MG/100 ML 500 100 / 100 100 / 100 100 / 100 mg In 100 ml @ 100 mls/hr IVPB Q8HR [facility] Rx#:[id number] Oral 0 / 0 0 / 0 0 / 0 Output: Urine 75 / 75 350 / 350 Estimated Blood Loss 0 / 0 Other: # Voids 1 Weight 62 kg Blood Glucose* 130 115 Patient Weight 02/10/18 23:59 Weight 62 kg - General physical appearance well developed - Respiratory normal expansion, normal respiratory effort - Cardiovascular Cardiovascular exam: Present: RRR - Abdomen Abdomen: Present: bowel sounds present, soft, non tender - Integumentary no rash - Psychiatric oriented to time, oriented to person, oriented to place - Labs 02/10/18 04:57 02/10/18 04:57 Diabetes panel 02/10/18 Range/Units 04:57 Sodium 131 L (136-145) mEq/L Potassium 4.8 (3.5-5.1) mEq/L Chloride 98 (98-107) mEq/L Carbon Dioxide 22 L (23-29) mEq/L BUN 11 (6-20) mg/dL Creatinine 1.24 (0.70-1.30) mg/dL Glucose 105 (70-105) mg/dL Calcium 8.5 L (8.6-10.3) mg/dL Calcium panel 02/10/18 Range/Units 04:57 Calcium 8.5 L (8.6-10.3) mg/dL Pituitary panel 02/10/18 Range/Units 04:57 Sodium 131 L (136-145) mEq/L Potassium 4.8 (3.5-5.1) mEq/L Chloride 98 (98-107) mEq/L Carbon Dioxide 22 L (23-29) mEq/L BUN 11 (6-20) mg/dL Creatinine 1.24 (0.70-1.30) mg/dL Glucose 105 (70-105) mg/dL Calcium 8.5 L (8.6-10.3) mg/dL Adrenal panel 02/10/18 Range/Units 04:57 Sodium 131 L (136-145) mEq/L Potassium 4.8 (3.5-5.1) mEq/L Chloride 98 (98-107) mEq/L Carbon Dioxide 22 L (23-29) mEq/L BUN 11 (6-20) mg/dL Creatinine 1.24 (0.70-1.30) mg/dL Glucose 105 (70-105) mg/dL Calcium 8.5 L (8.6-10.3) mg/dL
--- NOTE | 2018-02-10 11:22 | Internal Med Progress Note ---
Hospitalist Progress Note - Encounter Date of Encounter: 02/10/18 Time of Encounter: 11:00 - Subjective Interval History: No acute events. States abdominal pain is fairly controlled with pain medication. Diet advanced to clears today. Appetite good, he denies fevers. - Exam Vitals: Temp Pulse Resp BP Pulse Ox 97.3 F L 69 16 109/69 98 02/10/18 08:58 02/10/18 08:58 02/10/18 08:58 02/10/18 08:58 02/10/18 08:58 Exam: General: Well-appearing, NAD Skin: Warm and supple. HEENT: Moist mucous membranes. No conjunctivae pallor. Chest: Normal thoracic expansion. Normal breath sounds. Clear to auscultation. Heart: RRR, no mrg Abdomen: Soft, +TTP in epigastric region. No hepatomegaly/splenomegaly. Periumbilical hernia. Normal bowel sounds. Extremities: No clubbing, cyanosis or edema. No calf tenderness. Normal distal pulses. - Assessment and Plan (1) Abdominal abscess Current Visit: Yes Status: Acute Assessment and Plan: Likely a secondary complication to his Crohn's disease. Need to target gram negative enteric and anaerobic organisms. Lacks systemic signs of illness. Blood cultures ordered. Will continue ciprofloxacin/metronidazole for now. Surgery has evaluated patient and there is no indication for surgical intervention at this time. IR consult requested for drainage and samples should be sent for cell count, cytology and cultures. IR will be available on 02/11. (2) GISSELLE (acute kidney injury) Current Visit: Yes Status: Acute Assessment and Plan: Improved. Was 1.5 on admission and today is 1.29 (3) Renal stone Current Visit: Yes Status: Acute Assessment and Plan: Continue IV fluids and tamsulosin Plan for stent by Urology today. (4) Crohn's disease with abscess Current Visit: Yes Status: Chronic Assessment and Plan: Receives immunomodulator every 6 weeks. Will continue to follow with GI. (5) Hypothyroid Current Visit: Yes Status: Chronic Assessment and Plan: Will continue levothyroxine daily. (6) DVT prophylaxis Current Visit: Yes Status: Acute Assessment and Plan: SubQ heparin - Time Spent with Patient Total time spent is greater than 50% in coordination of care (as documented) at patient's floor/unit and/or counseling patient: Internal Medicine: Result - Labs CBC & Chem 7: 02/10/18 04:57 02/10/18 04:57 Labs: Short CBC 02/10/18 Range/Units 04:57 WBC 4.7 (4.3-11.1) K/mcL Hgb 11.4 L (12.9-16.9) g/dL Hct 34.8 L (37.5-50.1) % Plt Count 258 (140-400) K/mcL Neutrophils # 4.3 (1.6-8.9) K/mcL BMP 02/10/18 04:57 Sodium 131 L Potassium 4.8 Chloride 98 Carbon Dioxide 22 L BUN 11 Creatinine 1.24 Glucose 105 Calcium 8.5 L - ABG Interpretation ABG results: PT/INR, D-dimer PT 17.1 Seconds (9.4-12.1) H 02/09/18 05:41 - Impressions Impressions Retrograde Pyelogram 02/09/18 00:00 IMPRESSION: 1. Left-sided hydroureter with an abrupt transition at the level of the lower sacroiliac joint margin. Stricture is a possibility. 2. Left-sided ureteral stent placement. D/ / Wellington Booker MD / Wellington Booker MD Interpreting Provider: Wellington Booker MD Consult Discharge Plan - Plan Referrals: NONE,PCP [Primary Care Provider] - (4) Crohn's disease with abscess Qualifiers: Gastrointestinal tract location: small intestine Qualified Code(s): K50.014 - Crohn's disease of small intestine with abscess (5) Hypothyroid Qualifiers: Hypothyroidism type: unspecified Qualified Code(s): E03.9 - Hypothyroidism, unspecified
[2018-02-10] MEDS: *HR* HYDROcodone/Acet 5/325 mg TABLET PO PRN (15:40)
[2018-02-11] MEDS: *HR* HYDROcodone/Acet 5/325 mg TABLET PO PRN (00:13)
[2018-02-11] MEDS: MetroNIDAZOLE 500 MG/100 ML 500 MG/100 ML BAG IVPB SCH ×4 (00:17→23:57)
[2018-02-11] MEDS: D5% in 0.9% NACL 1,000 ML IVC SCH ×3 (04:31→21:56)
[2018-02-11 06:42] LABS: Hematocrit 31.9 % (37.5-50.1); Hemoglobin 10.4 g/dL (12.9-16.9); Mean Corpuscular HGB Conc 32.6 g/dL (31.6-35.5); Mean Corpuscular Hemoglobin 30.2 pg (28.0-33.3); Mean Corpuscular Volume 92.7 fL (83.0-100.0); Mean Platelet Volume 8.8 fL (9.4-12.4); Platelet Count 300 K/mcL (140-400); Red Blood Count 3.44 M/mcL (4.19-5.50); Red Cell Distribution Width 12.3 % (11.5-14.5)
[2018-02-11 07:00] LABS: BUN/Creatinine Ratio 8 (6-26); Blood Urea Nitrogen 10 mg/dL (6-20); Calcium 7.8 mg/dL (8.6-10.3); Carbon Dioxide 24 mEq/L (23-29); Chloride 102 mEq/L (98-107); Glucose 162 mg/dL (70-105); Osmolality,Calculated 277 (280-300); Sodium 132 mEq/L (136-145); eGFR For Non-African Americans > 60 (> 60)
[2018-02-11 07:11] LABS: Lymphocytes # 0.1 K/mcL (0.6-4.6); Neutrophils # 4.3 K/mcL (1.6-8.9)
[2018-02-11 07:12] LABS: Platelet Estimate Normal (Normal)
--- NOTE | 2018-02-11 08:37 | Urology Progress Note ---
<Mary El N - Last Filed: 02/11/18 08:35> Date of Encounter: 02/11/18 Time of Encounter: 08:15 - Assessment and Plan (1) Ureteral calculus, left Current Visit: Yes Status: Acute Assessment and plan: Patient is a 57-year-old male who presents with several mid left ureter, largest 6 mm and severe hydronephrosis. Patient is two days status post cystoscopy left retrograde ureteral pyelography with intraoperative interpretation of images by surgeon in real time to facilitate procedure, left ureteral dilation, left double-J stent placement under fluoroscopic guidance. Vital signs are stable and afebrile. Urine is clear. Discussed outpatient follow-up with Dr. Trimble in order to plan definitive stone extraction procedure. Progress Note Subjective: no new complaints, feels better Narrative: POD #2. Patient seen and examined sitting upright in bed in no apparent distress. Patient reports he is voiding without difficulty. Patient reports some urgency and dysuria, and I explained this is common postoperatively from stent placement. Patient denies gross hematuria, flank pain, fever, chills. Objective Initial Vital Signs Temp Pulse Resp BP Pulse Ox 98.3 F 85 16 103/62 98 02/08/18 14:36 02/08/18 14:36 02/08/18 14:36 02/08/18 14:36 02/08/18 14:36 - General physical appearance Present: well developed, no distress, no pain - Respiratory Present: normal expansion, normal respiratory effort - Abdomen Present: soft, non tender - Integumentary Present: no rash, no abnormal pigmentation - Musculoskeletal Present: normal posture - Psychiatric Present: oriented to time, oriented to person, oriented to place, speech is normal, memory intact - Labs 02/11/18 06:13 02/11/18 06:13 Diabetes panel 02/11/18 Range/Units 06:13 Sodium 132 L (136-145) mEq/L Potassium 4.0 (3.5-5.1) mEq/L Chloride 102 (98-107) mEq/L Carbon Dioxide 24 (23-29) mEq/L BUN 10 (6-20) mg/dL Creatinine 1.20 (0.70-1.30) mg/dL Glucose 162 H (70-105) mg/dL Calcium 7.8 L (8.6-10.3) mg/dL Calcium panel 02/11/18 Range/Units 06:13 Calcium 7.8 L (8.6-10.3) mg/dL Pituitary panel 02/11/18 Range/Units 06:13 Sodium 132 L (136-145) mEq/L Potassium 4.0 (3.5-5.1) mEq/L Chloride 102 (98-107) mEq/L Carbon Dioxide 24 (23-29) mEq/L BUN 10 (6-20) mg/dL Creatinine 1.20 (0.70-1.30) mg/dL Glucose 162 H (70-105) mg/dL Calcium 7.8 L (8.6-10.3) mg/dL Adrenal panel 02/11/18 Range/Units 06:13 Sodium 132 L (136-145) mEq/L Potassium 4.0 (3.5-5.1) mEq/L Chloride 102 (98-107) mEq/L Carbon Dioxide 24 (23-29) mEq/L BUN 10 (6-20) mg/dL Creatinine 1.20 (0.70-1.30) mg/dL Glucose 162 H (70-105) mg/dL Calcium 7.8 L (8.6-10.3) mg/dL Consult Discharge Plan - Plan Referrals: NONE,PCP [Primary Care Provider] - <Vasu Trimble - Last Filed: 02/11/18 12:08> - Assessment and Plan (1) Ureteral calculus, left Current Visit: Yes Status: Acute (2) Abdominal pain Current Visit: Yes Status: Acute Assessment and plan: Essentially resolved s/p stent placement which suggest at least some marginal function of the left kidney with pain from obstruction. Plan: My office will arrange for outpatient functional evaluation to determine whether nephrectomy, stone procedure or observation is the most appropriate treatment recommendation. Qualifiers: Abdominal location: generalized Qualified Code(s): R10.84 - Generalized abdominal pain (3) Left renal atrophy Current Visit: Yes Status: Acute (4) Hydronephrosis Current Visit: Yes Status: Acute Qualifiers: Hydronephrosis type: with renal calculous obstruction Qualified Code(s): N13.2 - Hydronephrosis with renal and ureteral calculous obstruction Objective Initial Vital Signs Temp Pulse Resp BP Pulse Ox 98.3 F 85 16 103/62 98 02/08/18 14:36 02/08/18 14:36 02/08/18 14:36 02/08/18 14:36 02/08/18 14:36 - Labs 02/11/18 06:13 02/11/18 06:13 Diabetes panel 02/11/18 Range/Units 06:13 Sodium 132 L (136-145) mEq/L Potassium 4.0 (3.5-5.1) mEq/L Chloride 102 (98-107) mEq/L Carbon Dioxide 24 (23-29) mEq/L BUN 10 (6-20) mg/dL Creatinine 1.20 (0.70-1.30) mg/dL Glucose 162 H (70-105) mg/dL Calcium 7.8 L (8.6-10.3) mg/dL Calcium panel 02/11/18 Range/Units 06:13 Calcium 7.8 L (8.6-10.3) mg/dL Pituitary panel 02/11/18 Range/Units 06:13 Sodium 132 L (136-145) mEq/L Potassium 4.0 (3.5-5.1) mEq/L Chloride 102 (98-107) mEq/L Carbon Dioxide 24 (23-29) mEq/L BUN 10 (6-20) mg/dL Creatinine 1.20 (0.70-1.30) mg/dL Glucose 162 H (70-105) mg/dL Calcium 7.8 L (8.6-10.3) mg/dL Adrenal panel 02/11/18 Range/Units 06:13 Sodium 132 L (136-145) mEq/L Potassium 4.0 (3.5-5.1) mEq/L Chloride 102 (98-107) mEq/L Carbon Dioxide 24 (23-29) mEq/L BUN 10 (6-20) mg/dL Creatinine 1.20 (0.70-1.30) mg/dL Glucose 162 H (70-105) mg/dL Calcium 7.8 L (8.6-10.3) mg/dL
[2018-02-11] MEDS: Gabapentin 300 MG CAPSULE PO SCH ×2 (08:58→21:59)
--- NOTE | 2018-02-11 09:48 | Internal Med Progress Note ---
<Tomas He S - Last Filed: 02/11/18 13:39> Hospitalist Progress Note - Encounter Date of Encounter: 02/11/18 Time of Encounter: 09:44 - Subjective Interval History: Pt is a 57yo male with a PMH of Chron's, anxiety, hypothyroidism, and depression. He presented to the hospital on 02/08 with the cc of abdominal pain that was in the epigastric region and LLQ. He had abd pain for about 5 days that was increasing in severity. He had some diarrhea but this wasn't out of the ordinary for him. He denied any fever/chills, changes in bowel movements. On CT of the abdomen the pt had an intra abd abscess with foci of gas adjacent to small bowel stricture, no contrast was extravasated to suggest leak - multi segmental areas of small bowel wall thickening compatible with skip lesions He was placed on cipro and flagyl - surgery was consulted and has since signed off as they feel no surgical intervention is needed - sx consulted IR for drainage of the abscess The pt also had a few calculi in the mid left ureter, largest being 6mm. There was hydronephrosis. The pt was seen by urology, who stented him on 02/09 The pt today is seen at the bedside. He has no c/o any new concerns. He does still have abd pain but it has improved a lot. He has no active chest pain, no SOB, no N/V/D. He is still able to pass gas and has been having bowel movements. - Exam Vitals: Temp Pulse Resp BP Pulse Ox 97.3 F L 63 14 102/58 93 02/11/18 07:20 02/11/18 07:20 02/11/18 07:20 02/11/18 07:20 02/11/18 07:20 Exam: General: Well-appearing, NAD Skin: Warm and supple. HEENT: Moist mucous membranes. No conjunctivae pallor. Chest: Normal thoracic expansion. Normal breath sounds. Clear to auscultation. Heart: RRR, no mrg Abdomen: Soft, +TTP in epigastric region. No hepatomegaly/splenomegaly. Periumbilical hernia. Normal bowel sounds. Extremities: No clubbing, cyanosis or edema. No calf tenderness. Normal distal pulses. - Assessment and Plan (1) Abdominal abscess Current Visit: Yes Status: Acute Assessment and Plan: Most likely due to Chron's disease CT scan on 02/08 - intra abd abscess with foci of gas adjacent to small bowel stricture, no contrast extravasation to suggest leak - multi segmental areas of small bowel wall thickening compatible w/ skip lesions No peritoneal signs, no rebound tenderness/guarding Plan: - continue cipro/flagyl day 2 - covering gram negative/anerobes - blood cultures pending - sx signing off, recommend GI consult Sx feels no need for surgical intervention IR to drain abscess today Samples for cell count, cytology, culture NPO now - GI consulted, appreciate recommendations - Continue 100cc/hr IVF D5 in NS (2) Renal stone Current Visit: Yes Status: Acute Assessment and Plan: Patient was stented by urology CT showed 6mm stone with hydronephrosis - POD 2 s/p cystoscopy left retrograde ureteral pyelography with intraop imaging Plan: - continue fluids 100cc/hr IVF - continue tamsulosin . (3) Crohn's disease with abscess Current Visit: Yes Status: Chronic Assessment and Plan: Receives immunomodulator every 6 weeks. - GI consulted - see plan as above for abscess (4) Hypothyroid Current Visit: No Status: Chronic Assessment and Plan: Will continue levothyroxine daily. (5) DVT prophylaxis Current Visit: Yes Status: Acute Assessment and Plan: SubQ heparin (6) GISSELLE (acute kidney injury) Current Visit: Yes Status: Acute Assessment and Plan: Improved Creatinine on admission 1.5 Today is 1.20 - continue IVF - likely due to poor PO intake - continue to monitor kindey fxn (7) Anxiety Current Visit: Yes Status: Acute Assessment and Plan: On Cymbalta - continue home med - Time Spent with Patient Total time spent is greater than 50% in coordination of care (as documented) at patient's floor/unit and/or counseling patient: less than 15 minutes Plan of Care Discussed with: patient Internal Medicine: Result - Labs CBC & Chem 7: 02/11/18 06:13 02/11/18 06:13 Labs: Short CBC 02/11/18 Range/Units 06:13 WBC 4.5 (4.3-11.1) K/mcL Hgb 10.4 L (12.9-16.9) g/dL Hct 31.9 L (37.5-50.1) % Plt Count 300 (140-400) K/mcL Neutrophils # 4.3 (1.6-8.9) K/mcL BMP 02/11/18 06:13 Sodium 132 L Potassium 4.0 Chloride 102 Carbon Dioxide 24 BUN 10 Creatinine 1.20 Glucose 162 H Calcium 7.8 L - ABG Interpretation ABG results: PT/INR, D-dimer PT 17.1 Seconds (9.4-12.1) H 02/09/18 05:41 Consult Discharge Plan - Plan Referrals: Mingo Baron, CENTER MACHINE OPERATOR [Non-Partnered Physician] - <Jacqueline Marie - Last Filed: 02/12/18 01:12> Hospitalist Progress Note - Exam Vitals: Temp Pulse Resp BP Pulse Ox 97.9 F 86 15 93/47 95 02/11/18 23:19 02/11/18 23:19 02/11/18 23:19 02/11/18 23:19 02/11/18 23:19 - Assessment and Plan (1) Abdominal abscess Current Visit: Yes Status: Acute (2) Renal stone Current Visit: Yes Status: Acute (3) Crohn's disease with abscess Current Visit: Yes Status: Chronic (4) Hypothyroid Current Visit: No Status: Chronic (5) DVT prophylaxis Current Visit: Yes Status: Acute (6) GISSELLE (acute kidney injury) Current Visit: Yes Status: Acute (7) Anxiety Current Visit: Yes Status: Acute - Time Spent with Patient Total time spent is greater than 50% in coordination of care (as documented) at patient's floor/unit and/or counseling patient: Internal Medicine: Result - Labs CBC & Chem 7: 02/11/18 06:13 02/11/18 06:13 Labs: Short CBC 02/11/18 Range/Units 06:13 WBC 4.5 (4.3-11.1) K/mcL Hgb 10.4 L (12.9-16.9) g/dL Hct 31.9 L (37.5-50.1) % Plt Count 300 (140-400) K/mcL Neutrophils # 4.3 (1.6-8.9) K/mcL [facility] 02/11/18 06:13 Sodium 132 L Potassium 4.0 Chloride 102 Carbon Dioxide 24 BUN 10 Creatinine 1.20 Glucose 162 H Calcium 7.8 L - ABG Interpretation ABG results: PT/INR, D-dimer PT 17.1 Seconds (9.4-12.1) H 02/09/18 05:41 - Attending Attestation I examined this patient and my medical decision-making was reviewed with the Resident Physician. I agree with the documented findings, disposition and treatment plan as described except to the extent set forth below. <Tomas He - Last Filed: 02/11/18 13:39> (3) Crohn's disease with abscess Qualifiers: Gastrointestinal tract location: small intestine Qualified Code(s): K50.014 - Crohn's disease of small intestine with abscess (4) Hypothyroid Qualifiers: Hypothyroidism type: unspecified Qualified Code(s): E03.9 - Hypothyroidism, unspecified <Jacqueline Marie - Last Filed: 02/12/18 01:12> (3) Crohn's disease with abscess Qualifiers: Gastrointestinal tract location: small intestine Qualified Code(s): K50.014 - Crohn's disease of small intestine with abscess (4) Hypothyroid Qualifiers: Hypothyroidism type: unspecified Qualified Code(s): E03.9 - Hypothyroidism, unspecified
--- NOTE | 2018-02-11 11:09 | General Surgery Progress Note ---
Date of Encounter: 02/11/18 Time of Encounter: 08:15 - Assessment and Plan (1) Crohn's disease with abscess Current Visit: Yes Status: Chronic Evidence on CT scan (02/08) Consulted IR for drain placement - likely today On flagyl and cipro D5 NS at 100 ml/hr Acetaminophen, norco, and oxycodone PRN for pain NPO for drain placement today GI consulted for management of Crohn's, patient sees Dr. Salamanca as outpatient No surgical intervention Surgery will sign off at this time. Thank you for the consult. Qualifiers: Qualified Code(s): K50.014 - Crohn's disease of small intestine with abscess (2) Renal stone Current Visit: Yes Status: Acute Patient has a few obstructing stones in left ureter with resulting hydronephrosis and loss of renal parenchyma Urology consulted Stent placed (02/09) Will follow up as outpatient to assess renal function and for stone removal (3) Hydronephrosis Current Visit: Yes Status: Acute 2/2 left renal stones Urology placed stent 02/09 Follow up as outpatient Qualifiers: Qualified Code(s): N13.2 - Hydronephrosis with renal and ureteral calculous obstruction (4) GISSELLE (acute kidney injury) Current Visit: Yes Status: Acute Likely 2/2 renal stones and hydronephrosis Cr improved 1.24 > 1.2 today Subjective Patient reports: no new complaints, feels better, pain is less, flatus, no bowel movement Narrative: Patient doing well this AM. He still has not had BM. He denies abdominal pain, nausea, vomiting, SOB, CP. Objective Vital Signs - Last 8 Hours Temp Pulse Resp BP Pulse Ox 02/11/18 10:22 97.5 F L 60 16 108/58 98 02/11/18 07:20 97.3 F L 63 14 102/58 93 02/11/18 04:47 97.5 F L 73 16 95/64 92 Intake and Output 02/10/18 02/11/18 02/11/18 23:59 07:59 15:59 Intake Total 740 / 740 1300 / 1300 273 / 273 Output Total 700 / 700 750 / 750 675 / 675 Balance 40 / 40 550 / 550 -402 / -402 Intake: IV Fluids 300 / 300 1300 / 1300 273 / 273 D5% And 0.9% Nacl 1000 Ml 1,000 1000 / 1000 273 / 273 ML @ 100 mls/hr IVC .Q10H ANDRZEJ Rx#:[id number] Cipro Premix 400 MG/200 ML 400 200 / 200 200 / 200 mg In 200 ml @ 200 mls/hr IVPB Q12HR ANDRZEJ Rx#:[id number] Flagyl Premix 500 MG/100 ML 500 100 / 100 100 / 100 mg In 100 ml @ 100 mls/hr IVPB Q8HR ANDRZEJ Rx#:[id number] Oral 440 / 440 0 / 0 Output: Urine 700 / 700 750 / 750 675 / 675 Other: Meal Clears npo Percent of Meal Consumed 0% Weight 61.8 kg Blood Glucose* 147 Patient Weight 02/11/18 23:59 Weight 61.8 kg - General physical appearance well developed - Respiratory normal expansion, normal respiratory effort - Cardiovascular Cardiovascular exam: Present: RRR - Abdomen Abdomen: Present: bowel sounds present, soft, non tender - Integumentary no rash - Psychiatric oriented to time, oriented to person, oriented to place - Labs 02/11/18 06:13 02/11/18 06:13 Diabetes panel 02/11/18 Range/Units 06:13 Sodium 132 L (136-145) mEq/L Potassium 4.0 (3.5-5.1) mEq/L Chloride 102 (98-107) mEq/L Carbon Dioxide 24 (23-29) mEq/L BUN 10 (6-20) mg/dL Creatinine 1.20 (0.70-1.30) mg/dL Glucose 162 H (70-105) mg/dL Calcium 7.8 L (8.6-10.3) mg/dL Calcium panel 02/11/18 Range/Units 06:13 Calcium 7.8 L (8.6-10.3) mg/dL Pituitary panel 02/11/18 Range/Units 06:13 Sodium 132 L (136-145) mEq/L Potassium 4.0 (3.5-5.1) mEq/L Chloride 102 (98-107) mEq/L Carbon Dioxide 24 (23-29) mEq/L BUN 10 (6-20) mg/dL Creatinine 1.20 (0.70-1.30) mg/dL Glucose 162 H (70-105) mg/dL Calcium 7.8 L (8.6-10.3) mg/dL Adrenal panel 02/11/18 Range/Units 06:13 Sodium 132 L (136-145) mEq/L Potassium 4.0 (3.5-5.1) mEq/L Chloride 102 (98-107) mEq/L Carbon Dioxide 24 (23-29) mEq/L BUN 10 (6-20) mg/dL Creatinine 1.20 (0.70-1.30) mg/dL Glucose 162 H (70-105) mg/dL Calcium 7.8 L (8.6-10.3) mg/dL Consult Discharge Plan - Plan Referrals: NONE,PCP [Primary Care Provider] -
--- NOTE | 2018-02-11 12:09 | Gastroenterology Consult Note ---
<Elijah Dsouza - Last Filed: 02/11/18 12:11> Date of Encounter: 02/11/18 Time of Encounter: 11:55 - Assessment and plan (1) Crohn's disease with abscess Current Visit: Yes Status: Chronic Assessment and plan: CT A/P showed multi segmental areas of small bowel wall thickening compatible with "skip lesions" given patient's history of Crohn's disease, intra-abdominal abscess containing foci of gas adjacent to a small bowel stricture. Continue IV Cipro and Flagyl. Dr. Salamanca to review imaging, then make recommendations. IR to drain abscess today. Qualifiers: Gastrointestinal tract location: small intestine Qualified Code(s): K50.014 - Crohn's disease of small intestine with abscess - Time Spent With Patient Total time spent is greater than 50% in coordination of care (as documented) at patient's floor/unit and/or counseling patient: GI History of Present Illness - Data of Consult Patient: known to practice within the last 3 years Consult date: 02/11/18 Requesting Physician: Jacqueline Marie MD - Consult Narrative Reason for consult: Crohn's disease History of present illness: Mr. Elena is a 57 year old male with PMHx of Crohn's disease who presented to the ED with complaints of diffuse abdominal pain that had been worsening for [address] A/P showed multi segmental areas of small bowel wall thickening compatible with "skip lesions" given patient's history of Crohn's disease, intra-abdominal abscess containing foci of gas adjacent to a small bowel stricture. He reports having 2 BMs per day ranging from loose to watery, which is consistent with his IBD. Surgery was consulted due to abscess, and they recommended IR consult for drain placement. Taryn was started on IV Cipro and Flagyl. Today, he denies abdominal pain, nausea, or vomiting. Procedures: Colonoscopy 07/07/2015 Dr. Salamanca: Internal hemorrhoids, benign small bowel biopsy, repeat 2 years. NSAIDs: None Anticoagulation: None Past Med Surg Social Fam HX - Past Medical History Medical history: other Additional medical history: Crohns. RLS. hx renal stones Psychiatric history: anxiety, depression - Past Surgical History Surgical History: colectomy, herniorrhaphy, other Additional surgical history: bowel surgery - Social History Smoking Status: Never smoker Smokeless Tobacco Status: No Alcohol use: none Drug use: none - Family History Grandmother History Unknown: Yes - Gastrointestinal Gastrointestinal: Present: as per HPI - Constitutional Constitutional: as per HPI - EENT Eyes: as per HPI Ears: Present: as per HPI Nose, mouth and throat: Present: as per HPI - Cardiovascular Cardiovascular ROS: Present: as per HPI - Respiratory Respiratory IM: Present: as per HPI - Genitourinary Genitourinary: Absent: change in color, Urinary frequency - Neurological ROS Neurological GI: Present: as per HPI - Hematologic/Lymphatic Hematologic/Lymphatic pediatric: Present: as per HPI - Musculoskeletal Musculoskeletal ROS GI: Present: as per HPI - Integumentary Integumentary GI: Present: as per HPI - Psychiatric ROS Psychiatric GI: Present: as per HPI - Endocrine Endocrine IM: Present: as per HPI - Constitutional Vitals: Temp Pulse Resp BP Pulse Ox 97.5 F L 60 16 108/58 98 02/11/18 10:22 02/11/18 10:22 02/11/18 10:22 02/11/18 10:22 02/11/18 10:22 General appearance: Present: cooperative, A&O X 3, no acute distress, answers questions appropriately - Head Head exam: Present: atraumatic, normocephalic - Eye Eye exam: Present: normal appearance, sclera anicteric - ENT ENT exam: Present: mucous membranes dry - Neck Neck exam general surgery: Present: normal inspection, trachea midline - Respiratory Respiratory exam: Present: decreased breath sounds, CTAB. Absent: rales, rhonchi - Cardiovascular Cardiovascular exam: Present: RRR, +S1, +S2 - GI/Abdominal GI/Abdominal exam: Present: normal bowel sounds, soft, tenderness (mild epigastric), no peritoneal signs. Absent: distended, firm, guarding - Rectal Rectal exam: Present: deferred - Extremities Exam Extremities exam: Present: warm - Neurological Exam Neurological exam: Present: no focal deficits - Psychiatric Psychiatric exam: Present: normal affect, normal mood - Skin Skin exam: Present: dry, intact, normal color, warm Results - Labs CBC & Chem 7: 02/11/18 06:13 02/11/18 06:13 Labs: Last Result Calcium 7.8 mg/dL (8.6-10.3) L 02/11/18 06:13 Entire Visit Hgb 10.4 g/dL (12.9-16.9) L 02/11/18 06:13 Hct 31.9 % (37.5-50.1) L 02/11/18 06:13 PT 17.1 Seconds (9.4-12.1) H 02/09/18 05:41 - ABG ABG results: PT/INR, D-dimer PT 17.1 Seconds (9.4-12.1) H 02/09/18 05:41 Consult Discharge Plan - Plan Referrals: NONE,PCP [Primary Care Provider] - <Leonor Salamanca - Last Filed: 02/11/18 17:38> Time of Encounter: 15:00 - Time Spent With Patient Total time spent is greater than 50% in coordination of care (as documented) at patient's floor/unit and/or counseling patient: GI History of Present Illness - Data of Consult Requesting Physician: Jacqueline Marie MD - Consult Narrative History of present illness: Mr. Elena is a 57 year old male - Constitutional Vitals: Temp Pulse Resp BP Pulse Ox 97.5 F L 66 15 115/68 100 02/11/18 17:12 02/11/18 17:12 02/11/18 17:12 02/11/18 17:12 02/11/18 17:12 Results - Labs CBC & Chem 7: 02/11/18 06:13 02/11/18 06:13 Labs: Last Result Calcium 7.8 mg/dL (8.6-10.3) L 02/11/18 06:13 Entire Visit Hgb 10.4 g/dL (12.9-16.9) L 02/11/18 06:13 Hct 31.9 % (37.5-50.1) L 02/11/18 06:13 PT 17.1 Seconds (9.4-12.1) H 02/09/18 05:41 - ABG ABG results: PT/INR, D-dimer PT 17.1 Seconds (9.4-12.1) H 02/09/18 05:41 - Attending Attestation I have personally performed a face to face evaluation on this patient. I have reviewed and agree with the care plan. History and Exam by me shows: Patient seen. Per patient abdominal pain is better after placement of the intrahepatic stent. On examination abdomen is soft does has some mid abdominal tenderness. Assessment: Patient with the Crohn disease has been on Remicade and lately on Entyvio now with the significant disease in the distal small bowel along with an abscess. Recommendation: Abscess drainage by IR, continue antibiotics. Hold Entyvio. Patient may end up needing surgery done in the near future as an outpatient as despite being on Entyvio still had some significant disease.
[2018-02-11] MEDS ORDERED: 0.9 % Sodium Chloride 500 ML ONE (15:19)
[2018-02-11] MEDS ORDERED: *HR* Midazolam HCl 2 MG/2 ML VIAL ONE (15:22)
[2018-02-11] MEDS ORDERED: *HR* FentaNYL (PF) 100 MCG/2 ML VIAL IVP ONE (15:22)
[2018-02-11] MEDS ORDERED: *HR* Midazolam HCl 2 MG/2 ML VIAL IVP ONE (15:22)
[2018-02-11] MEDS ORDERED: *HR* FentaNYL (PF) 100 MCG/2 ML VIAL ONE (15:23)
--- NOTE | 2018-02-11 15:23 | Pre-Sedation Evaluation ---
Pre-sedation evaluation - Pre-sedation checklist Date of procedure: 02/09/18 Procedure: colonoscopy Recent Vitals: Last Vital Signs Temp 97.4 F L 02/11/18 14:09 Pulse 61 02/11/18 14:09 Resp 15 02/11/18 14:09 BP 113/68 02/11/18 14:09 Pulse Ox 93 02/11/18 14:09 H&P (including ROS) documented in medical record: Yes Previous reaction to sedatives/anesthetics: No Dietary Status: NPO after Midnight Airway Assessment: Patient can open mouth completely, TMJ function normal, Micrognathia (under-bite, receding chin) absent, Neck with adequate range of motion Dentition: No loose teeth or bridges Possible difficult airway: No ASA Classification *see protocol: CLASS II-Mild systemic disease Plan of Care: Pt appropriate candidate for procedure/moderate/conscious sedation, Risks/benefits of procedure/sedation discussed w/ patient/family, If not NPO; Risk of intake outweiged by necessity to perform procedure Cardiac Registry (Cardio Only) - Clincal Frailty Scale Clinical Frailty Scale: Managing Well
--- NOTE | 2018-02-11 15:43 | IR Procedure Note ---
Date of procedure: 02/11/18 Consent Obtained: Written consent Timeout: Correct patient and procedure verified, Correct site verified, Time out performed, Skin prep completed Local anesthetic: Lidocaine 1% Indications: abscess Procedure Performed: drain Was there an medical billing assistant present: No Site/Technique: abdomen, center Results/Findings: 10cc pus, sent for cultures Estimated blood loss (cc): 0 Complications: None; Tolerated procedure well Post Procedure Treatment Plan: suction Specimen: 10cc pus
[2018-02-11] MEDS ORDERED: Enoxaparin Weight Dosing SQ STA (17:02)
[2018-02-12] MEDS: *HR* HYDROcodone/Acet 5/325 mg TABLET PO PRN (03:27)
[2018-02-12 07:55] LABS: Basophils % 0.6 %; Eosinophils # 0.1 K/mcL (0.0-0.6); Eosinophils % 1.2 %; Hematocrit 32.5 % (37.5-50.1); Hemoglobin 10.6 g/dL (12.9-16.9); Immature Granulocytes % 4.8 % (0-4); Lymphocytes # 0.4 K/mcL (0.6-4.6); Lymphocytes % 7.8 %; Mean Corpuscular HGB Conc 32.6 g/dL (31.6-35.5); Mean Corpuscular Hemoglobin 30.5 pg (28.0-33.3); Mean Corpuscular Volume 93.7 fL (83.0-100.0); Mean Platelet Volume 8.9 fL (9.4-12.4); Monocytes # 0.4 K/mcL (0.0-1.3); Monocytes % 8.9 %; Neutrophils # 3.8 K/mcL (1.6-8.9); Platelet Count 269 K/mcL (140-400); Red Blood Count 3.47 M/mcL (4.19-5.50); Red Cell Distribution Width 12.6 % (11.5-14.5); Segmented Neutrophils % 76.7 %
[2018-02-12 08:14] LABS: BUN/Creatinine Ratio 6 (6-26); Blood Urea Nitrogen 7 mg/dL (6-20); Calcium 7.6 mg/dL (8.6-10.3); Carbon Dioxide 26 mEq/L (23-29); Chloride 104 mEq/L (98-107); Glucose 124 mg/dL (70-105); Osmolality,Calculated 277 (280-300); Potassium 3.7 mEq/L (3.5-5.1); Sodium 134 mEq/L (136-145); eGFR For Non-African Americans > 60 (> 60)
[2018-02-12] MEDS: MetroNIDAZOLE 500 MG/100 ML 500 MG/100 ML BAG IVPB SCH ×3 (08:57→23:33)
[2018-02-12] MEDS: Gabapentin 300 MG CAPSULE PO SCH ×2 (08:57→20:09)
--- NOTE | 2018-02-12 09:31 | Internal Med Progress Note ---
<Tomas He S - Last Filed: 02/12/18 11:11> Hospitalist Progress Note - Encounter Date of Encounter: 02/12/18 Time of Encounter: 09:26 - Subjective Interval History: Pt is a 57yo male with a PMH of Chron's, anxiety, hypothyroidism, and depression. He presented to the hospital on 02/08 with the cc of abdominal pain that was in the epigastric region and LLQ. He had abd pain for about 5 days that was increasing in severity. He had some diarrhea but this wasn't out of the ordinary for him. He denied any fever/chills, changes in bowel movements. On CT of the abdomen the pt had an intra abd abscess with foci of gas adjacent to small bowel stricture, no contrast was extravasated to suggest leak - multi segmental areas of small bowel wall thickening compatible with skip lesions He was placed on cipro and flagyl - surgery was consulted and has since signed off as they feel no surgical intervention is needed - sx consulted IR for drainage of the abscess The pt also had a few calculi in the mid left ureter, largest being 6mm. There was hydronephrosis. The pt was seen by urology, who stented him on 02/09 The pt today is seen at the bedside. He has no c/o any new concerns. He does still have abd pain but it has improved a lot. He has no active chest pain, no SOB, no N/V/D. He is still able to pass gas and has been having bowel movements. Pt is s/p IR drainage of intra-abd abscess. He tolerated the procedure well and had no complications. He is currently stable. - Exam Vitals: Temp Pulse Resp BP Pulse Ox 97.9 F 65 14 99/62 97 02/12/18 06:47 02/12/18 06:47 02/12/18 06:47 02/12/18 06:47 02/12/18 06:47 Exam: General: Well-appearing, NAD Skin: Warm and supple. HEENT: Moist mucous membranes. No conjunctivae pallor. Chest: Normal thoracic expansion. Normal breath sounds. Clear to auscultation. Heart: RRR, no mrg Abdomen: Soft, +TTP in epigastric region. No hepatomegaly/splenomegaly. Periumbilical hernia. Normal bowel sounds. Extremities: No clubbing, cyanosis or edema. No calf tenderness. Normal distal pulses. - Assessment and Plan (1) Abdominal abscess Current Visit: Yes Status: Acute Assessment and Plan: Most likely due to Chron's disease CT scan on 02/08 - intra abd abscess with foci of gas adjacent to small bowel stricture, no contrast extravasation to suggest leak - multi segmental areas of small bowel wall thickening compatible w/ skip lesions No peritoneal signs, no rebound tenderness/guarding Plan: - continue cipro/flagyl day 3 - covering gram negative/anerobes - blood cultures pending - sx signing off, recommend GI consult Sx feels no need for surgical intervention IR to drain abscess today Samples for cell count, cytology, culture Regular diet - GI consulted, appreciate recommendations - discontinue 100cc/hr IVF D5 in NS - dispo : drain removal, cx/cell count/cytology pending results (2) Renal stone Current Visit: Yes Status: Acute Assessment and Plan: Patient was stented by urology CT showed 6mm stone with hydronephrosis - POD 3 s/p cystoscopy left retrograde ureteral pyelography with intraop imaging Plan: - discontinue fluids 100cc/hr IVF - continue tamsulosin . (3) Crohn's disease with abscess Current Visit: Yes Status: Chronic Assessment and Plan: Receives immunomodulator every 6 weeks. - GI consulted - see plan as above for abscess (4) Hypothyroid Current Visit: No Status: Chronic Assessment and Plan: Will continue levothyroxine daily. (5) DVT prophylaxis Current Visit: Yes Status: Acute Assessment and Plan: SubQ heparin (6) GISSELLE (acute kidney injury) Current Visit: Yes Status: Acute Assessment and Plan: Improved Creatinine on admission 1.5 Today is 1.16 - continue IVF - likely due to poor PO intake - continue to monitor kindey fxn (7) Anxiety Current Visit: Yes Status: Acute Assessment and Plan: On Cymbalta - continue home med - Time Spent with Patient Total time spent is greater than 50% in coordination of care (as documented) at patient's floor/unit and/or counseling patient: less than 15 minutes Plan of Care Discussed with: patient Internal Medicine: Result - Labs CBC & Chem 7: 02/12/18 06:20 02/12/18 06:20 Labs: Short CBC 02/12/18 Range/Units 06:20 WBC 5.0 (4.3-11.1) K/mcL Hgb 10.6 L (12.9-16.9) g/dL Hct 32.5 L (37.5-50.1) % Plt Count 269 (140-400) K/mcL Neutrophils # 3.8 (1.6-8.9) K/mcL BMP 02/12/18 06:20 Sodium 134 L Potassium 3.7 Chloride 104 Carbon Dioxide 26 BUN 7 Creatinine 1.16 Glucose 124 H Calcium 7.6 L - ABG Interpretation ABG results: PT/INR, D-dimer PT 17.1 Seconds (9.4-12.1) H 02/09/18 05:41 - Impressions Impressions Retroperitoneal Abscess Drainage 02/11/18 00:00 IMPRESSION: Successful CT guided placement of peritoneal abscess drainage catheter. D/ / Vesta Mitchell MD / Vesta Mitchell MD Interpreting Provider: Vesta Mitchell MD Consult Discharge Plan - Plan Referrals: Mingo Baron, [employer] [Non-Partnered Physician] - <Mahad Alfonso - Last Filed: 02/12/18 12:40> Hospitalist Progress Note - Encounter Time of Encounter: 09:50 - Exam Vitals: Temp Pulse Resp BP Pulse Ox 98.1 F 77 15 103/62 100 02/12/18 10:57 02/12/18 10:57 02/12/18 10:57 02/12/18 10:57 02/12/18 10:57 - Assessment and Plan (1) Abdominal abscess Current Visit: Yes Status: Acute (2) Renal stone Current Visit: Yes Status: Acute (3) Crohn's disease with abscess Current Visit: Yes Status: Chronic (4) Hypothyroid Current Visit: No Status: Chronic (5) DVT prophylaxis Current Visit: Yes Status: Acute (6) GISSELLE (acute kidney injury) Current Visit: Yes Status: Acute (7) Anxiety Current Visit: Yes Status: Acute - Time Spent with Patient Total time spent is greater than 50% in coordination of care (as documented) at patient's floor/unit and/or counseling patient: Internal Medicine: Result - Labs CBC & Chem 7: 02/12/18 06:20 02/12/18 06:20 Labs: Short CBC 02/12/18 Range/Units 06:20 WBC 5.0 (4.3-11.1) K/mcL Hgb 10.6 L (12.9-16.9) g/dL Hct 32.5 L (37.5-50.1) % Plt Count 269 (140-400) K/mcL Neutrophils # 3.8 (1.6-8.9) K/mcL BMP 02/12/18 06:20 Sodium 134 L Potassium 3.7 Chloride 104 Carbon Dioxide 26 BUN 7 Creatinine 1.16 Glucose 124 H Calcium 7.6 L - ABG Interpretation ABG results: PT/INR, D-dimer PT 17.1 Seconds (9.4-12.1) H 02/09/18 05:41 - Impressions Impressions Retroperitoneal Abscess Drainage 02/11/18 00:00 IMPRESSION: Successful CT guided placement of peritoneal abscess drainage catheter. D/ / Vesta Mitchell MD / Vesta Mitchell MD Interpreting Provider: Vesta Mitchell MD - Attending Attestation I saw evaluated and examined this patient and my medical decision-making was reviewed with the Resident Physician, Tomas He. I agree with the documented findings, disposition and treatment plan as described except to any changes set forth below. We independently had qurz-cd-eror contact with the patient. 57-year-old male patient with history of Crohn's disease hospitalized here with acute abdominal pain related to abdominal abscess from Crohn's disease. Patient is feeling better today. Pain has improved since his procedure yesterday evening. Denies any fevers or chills overnight. Has been tolerating diet well. On exam, patient is awake and alert. Sitting up in bed. Abdomen is soft, drain in place draining purulent material. Heart sounds are normal. Breath sounds are normal. No pedal edema noted. Acute abdominal abscess related to Crohn's disease: Status post IR CT guided drain. Cultures are currently pending. Will continue current antibiotics. Crohn's disease: GI consult appreciated. Patient currently tolerating diet. Recommended to hold Entyvio. Follow-up after discharge with GI and surgery. Acute kidney injury: Now resolved. Left ureteral calculus: Status post cystoscopy with double-J stent placement. Follow up with urology Moderate risk for complications. <Tomas He S - Last Filed: 02/12/18 11:11> (3) Crohn's disease with abscess Qualifiers: Gastrointestinal tract location: small intestine Qualified Code(s): K50.014 - Crohn's disease of small intestine with abscess (4) Hypothyroid Qualifiers: Hypothyroidism type: unspecified Qualified Code(s): E03.9 - Hypothyroidism, unspecified <Mahad Alfonso - Last Filed: 02/12/18 12:40> (3) Crohn's disease with abscess Qualifiers: Gastrointestinal tract location: small intestine Qualified Code(s): K50.014 - Crohn's disease of small intestine with abscess (4) Hypothyroid Qualifiers: Hypothyroidism type: unspecified Qualified Code(s): E03.9 - Hypothyroidism, unspecified
[2018-02-12 10:46] LABS: Adenovirus F 40/41 PCR Not detected (Not detect); Astrovirus PCR Not detected (Not detect); C.difficile Toxin A/B by PCR Not detected (Not detect); Campylobacter by PCR Not detected (Not detect); Cryptosporidium by PCR Not detected (Not detect); Cyclospora cayetanensis PCR Not detected (Not detect); E. coli O157 by PCR Not detected (Not detect); Entamoeba histolytica PCR Not detected (Not detect); Enteroaggregative E.coli(EAEC) Not detected (Not detect); Enteropathogenic E.coli(EPEC) Not detected (Not detect); Enterotoxigenic E.coli (ETEC) Not detected (Not detect); Giardia lamblia PCR Not detected (Not detect); Norovirus GI/GII PCR Not detected (Not detect); Plesiomonas shigelloides PCR Not detected (Not detect); Rotavirus A PCR Not detected (Not detect); Salmonella PCR Not detected (Not detect); Sapovirus PCR Not detected (Not detect); Shig/EnteroinvasiveE coli EIEC Not detected (Not detect); Shigalike tox-prod E coli STEC Not detected (Not detect); Vibrio PCR Not detected (Not detect); Vibrio cholerae PCR Not detected (Not detect); Yersinia enterocolitica PCR Not detected (Not detect)
[2018-02-13 05:19] LABS: Basophils # 0.1 K/mcL (0.0-0.2); Basophils % 1.4 %; Eosinophils # 0.1 K/mcL (0.0-0.6); Eosinophils % 2.4 %; Hematocrit 32.4 % (37.5-50.1); Hemoglobin 10.7 g/dL (12.9-16.9); Immature Granulocytes % 5.7 % (0-4); Lymphocytes # 0.5 K/mcL (0.6-4.6); Lymphocytes % 8.9 %; Mean Corpuscular Hemoglobin 30.3 pg (28.0-33.3); Mean Corpuscular Volume 91.8 fL (83.0-100.0); Mean Platelet Volume 8.8 fL (9.4-12.4); Monocytes # 0.7 K/mcL (0.0-1.3); Monocytes % 11.7 %; Neutrophils # 4.1 K/mcL (1.6-8.9); Platelet Count 265 K/mcL (140-400); Red Blood Count 3.53 M/mcL (4.19-5.50); Red Cell Distribution Width 12.6 % (11.5-14.5); Segmented Neutrophils % 69.9 %
[2018-02-13 05:46] LABS: BUN/Creatinine Ratio 6 (6-26); Blood Urea Nitrogen 6 mg/dL (6-20); Calcium 7.6 mg/dL (8.6-10.3); Carbon Dioxide 27 mEq/L (23-29); Chloride 101 mEq/L (98-107); Glucose 90 mg/dL (70-105); Osmolality,Calculated 271 (280-300); Potassium 3.7 mEq/L (3.5-5.1); Sodium 132 mEq/L (136-145); eGFR For Non-African Americans > 60 (> 60)
[2018-02-13 06:02] LABS: Platelet Estimate Normal (Normal)
[2018-02-13] MEDS: Gabapentin 300 MG CAPSULE PO SCH (09:06)
[2018-02-13] MEDS: metroNIDAZOLE 500 MG TABLET PO SCH (11:41)
[2018-02-13 11:49] VITALS: BP 117/71
--- NOTE | 2018-02-13 14:31 | Discharge Summary ---
- NOTES TO OUTPATIENT PROVIDER Notes to Outpatient Provider: Patient with history of Crohn's disease and renal stones was hospitalized here with acute abdominal pain related to intra- abdominal abscess from Crohn's disease flareup. He also had acute kidney injury and left ureteral calculus with hydronephrosis. Gastroenterology, surgery and urology were consulted to help manage patient's care. Intra-abdominal drain was recommended and interventional radiology placed his drain under CT guidance. Fluid culture is growing streptococcus species. Patient is doing much better today and is clinically stable for discharge. Interventional radiology recommends leaving the drain in for a couple more days. Repeat CT scan of the abdomen and pelvis showed resolution of the abscess. Patient will follow up with INR in 2 days for removal of the drain. Patient also underwent placement of left double-J stent in the left ureter by urology. He will follow up with urology after discharge for further management. He will complete antibiotic course to treat streptococcal intra-abdominal abscess. He is advised to return to the ER if he develops any fever, worsening abdominal pain or any other acute complaints. Orders not resulted at time of discharge: Pending orders 02/08/18 20:46 Culture,Blood [BC] Stat 02/08/18 21:50 IR drain abd/retro w cath [IR] Routine 02/08/18 21:52 Culture,Body Fluid [RM] Routine 02/09/18 10:22 Culture,Anaerobic [RM] Routine Date of Encounter: 02/13/18 Time of Encounter: 14:28 - Discharge Diagnosis (1) Abdominal abscess Priority: Primary Status: Acute (2) Renal stone Priority: Secondary Status: Acute (3) Crohn's disease with abscess Priority: Secondary Status: Chronic Qualifiers: Gastrointestinal tract location: small intestine Qualified Code(s): K50.014 - Crohn's disease of small intestine with abscess (4) Hypothyroid Priority: Secondary Status: Chronic Qualifiers: Hypothyroidism type: unspecified Qualified Code(s): E03.9 - Hypothyroidism, unspecified (5) DVT prophylaxis Priority: Secondary Status: Acute (6) GISSELLE (acute kidney injury) Priority: Secondary Status: Acute (7) Anxiety Priority: Secondary Status: Acute Hospital course: Mr. Elena is a 57 year old male Patient with history of Crohn's disease and renal stones was hospitalized here with acute abdominal pain related to intra- abdominal abscess from Crohn's disease flareup. He also had acute kidney injury and left ureteral calculus with hydronephrosis. Gastroenterology, surgery and urology were consulted to help manage patient's care. Intra-abdominal drain was recommended and interventional radiology placed his drain under CT guidance. Fluid culture is growing streptococcus species. Patient is doing much better today and is clinically stable for discharge. Interventional radiology rec ommends leaving the drain in for a couple more days. Repeat CT scan of the abdomen and pelvis showed resolution of the abscess. Patient will follow up with INR in 2 days for removal of the drain. Patient also underwent placement of left double-J stent in the left ureter by urology. He will follow up with urology after discharge for further management. He will complete antibiotic course to treat streptococcal intra-abdominal abscess. He is advised to return to the ER if he develops any fever, worsening abdominal pain or any other acute complaints. He should not was evaluated for his Crohn's disease by GI and recommended to hold Entyvio. He will follow up outpatient with GI for an possibly need surgery done as outpatient. Discharge discussed with: patient, nurse - Time Spent with Patient Total time spent providing and/or coordinating discharge services: Greater than 30 minutes (32 min) - Discharge Medications Prescriptions: Amoxicillin/Clavulanate [Augmentin] 875 mg PO BIDWM #14 tablet Home Medications: Baclofen [Lioresal] 10 mg PO BID PRN 02/08/18 [History] Buspirone HCl [Buspar] 10 mg PO BID 02/08/18 [History] DULoxetine [Cymbalta] 30 mg PO BID 02/08/18 [History] Diphenoxylate/Atropine [Lomotil 2.5 mg/0.025 mg] 1 tab PO QID PRN 02/08/18 [History] Gabapentin [Neurontin] 300 mg PO BID 02/08/18 [History] Levothyroxine Sodium [Levoxyl] 75 mcg PO DAILY 02/08/18 [History] Amoxicillin/Clavulanate [Augmentin] 875 mg PO BIDWM #14 tablet 02/13/18 [Rx] Allergies/Adverse Reactions: Allergy/AdvReac Type Severity Reaction Status Date / Time NSAIDS (Non-Steroidal AdvReac Abdominal Verified 02/09/18 11:46 Anti-Inflamma Pain Date of admission: 02/09/18 00:17 Primary care physician: PCP NONE Consults: 02/08/18 18:56 Consult to Urology [CONS] Stat Consulting Provider: Urology [facility] Reason for Consult: Renal lithiasis Time Notified: 18:56 Call Completed: No 02/08/18 19:09 Consult to Surgery [CONS] Stat Consulting Provider: Yury Mcgill Reason for Consult: Abdominal abscess Time Notified: 19:10 Call Completed: No 02/09/18 11:07 Consult to Interventional Radiology [CONS] Routine Consulting Provider: Radiology Interventional Cols Reason for Consult: intraabdominal abscess Time Notified: 11:07 Call Completed: No 02/11/18 09:46 Consult to Gastroenterology [CONS] Routine Consulting Provider: Gastroenterology Marline Reason for Consult: chrons dz Call Completed: No 02/13/18 08:19 Consult to Interventional Radiology [CONS] Routine Consulting Provider: Radiology Interventional Cols Reason for Consult: retroperitoneal abscess/ drain placed; eval for removal. Time Notified: 08:20 Call Completed: Yes Discharging clinician: Mahad Alfonso Anticipated date of discharge: 02/13/18 - Constitutional Vitals: Temp Pulse Resp BP Pulse Ox 98.2 F 77 16 117/71 100 02/13/18 11:42 02/13/18 11:42 02/13/18 11:42 02/13/18 11:42 02/13/18 11:42 General appearance: Present: cooperative, A&O X 3, answers questions appropriately Exam: . - Respiratory Respiratory exam: Present: CTAB. Absent: accessory muscle use, rales, rhonchi, wheezes - Cardiovascular Cardiovascular exam: Present: RRR, +S1, +S2. Absent: diastolic murmur, gallop, rubs, systolic murmur - GI/Abdominal GI/Abdominal exam: Present: normal bowel sounds, soft, no peritoneal signs. Absent: distended, tenderness Additional comments: Intra-abdominal drain in place with minimal drainage - Extremities Exam Extremities exam: Present: warm, radial pulses palpable and symmetrical. Absent: calf tenderness, cyanotic, pedal edema - Patient Status Disposition: Home, Self-Care Condition: Good Functional capacity at discharge: independent ambulation Overall status at discharge: patient is progressing back to baseline - Discharge Instructions Follow Up With: Mingo Baron, [employer] [Non-Partnered Physician] - (in 1-2 weeks) Leonor Salamanca MD [Partnered Physician] - (in 1-2 weeks) Stef Villafana MD [Non-Partnered Physician] - (in 2 days for follow up on Intraabdominal drain) - Diet and Activity Activity: increase activity as tolerated Diet: advance to your usual diet, low fat, low cholesterol, low salt diet
== END 2018-02-13 16:20 | disposition home or self-care (01) | DRG 987 ==
LOC: EMEROOARM 14:22 → SUATTDRO 02-09 00:17 → 3ANU 02-09 00:17
PROVIDERS: ADMIT Internal Medicine; ATTEND Internal Medicine
PROC: IRDRAIN (2018-02-11 15:00)